=== PATIENT | female | born 1965 | race Caucasian/White ===

== ENCOUNTER 2016-04-28 23:14 | Emergency (ER) | payer MEDICAID ==
--- NOTE | 2016-04-28 23:30 | ER Document Report ---
ED Medical Screen (RME) - General Stated Complaint: NAUSEA,VOMITING,FEVER,CHILLLS Time seen by provider: 23:28 Mode of Arrival: Medic Information source: Patient Notes: 50-year-old female presents to ED for nausea and diarrhea for the past week. Increase in pain for the last 2-3 days. Has not been tested for the flu fever been as high as 100.5 today and she became worried. Temperature is 98.0 in the emergency room. She is currently receiving chemotherapy for bone cancer. She's had breast and thyroid cancer. She has had 2 chemotherapy treatments and she missed a which was supposed to be Tuesday due to illness. She received 4 mg Zofran IV in the EMS. EMS states that she pulled her IV out after the Zofran. She states she took 400 mg of ibuprofen an hour before being picked up by the EMS. I have greeted and performed a rapid initial assessment of this patient. A comprehensive ED assessment and evaluation of the patient, analysis of test results and completion of medical decision making process will be conducted by an additional ED providers. TRAVEL OUTSIDE OF THE [place] IN LAST 30 DAYS: No - Related Data Allergies/Adverse Reactions: No Known Allergies Allergy (Verified 01/29/16 23:17) Past Medical History Endocrine Medical History: Reports: Hx Hypothyroidism Malignancy Medical History: Reports: Hx Bone Cancer, Hx Breast Cancer - Metastatic stage IV to the bone Psychiatric Medical History: Reports: Hx Anxiety, Hx Depression Past Surgical History: Reports: Hx Cholecystectomy, Hx Hysterectomy - total, Hx Thyroid Surgery - complete removal, Hx Tubal Ligation - Immunizations Hx Diphtheria, Pertussis, Tetanus Vaccination: Yes
[2016-04-29 01:22] LABS: ABSOLUTE LYMPHOCYTES (AUTO) 1.7 10^3/uL (0.5-4.7); ABSOLUTE MONOCYTES (AUTO) 0.9 10^3/uL (0.1-1.4); ABSOLUTE NEUT (AUTO) 10.4 10^3/uL (1.7-8.2); BASOPHILS % (AUTO) 0.1 % (0-2); HEMATOCRIT 42.4 % (36.0-47.0); HEMOGLOBIN 13.9 g/dL (12.0-15.5); HGB HCT DIFFERENCE -0.7; LYMPHOCYTES % (AUTO) 12.9 % (13-45); MEAN CORPUSCULAR HEMOGLOBIN 29.1 pg (27.0-33.4); MEAN CORPUSCULAR HGB CONC 32.8 g/dL (32.0-36.0); MEAN CORPUSCULAR VOLUME 89 fl (80-97); RED BLOOD COUNT 4.77 10^6/uL (3.72-5.28); RED CELL DISTRIBUTION WIDTH 15.6 % (11.5-14.0)
[2016-04-29 01:32] LABS: ALANINE AMINOTRANSFERASE 16 U/L (9-52); ALKALINE PHOSPHATASE 86 U/L (38-126); ANION GAP 15 (5-19); ASPARTATE AMINO TRANSFERASE 20 U/L (14-36); BILIRUBIN,TOTAL 0.6 mg/dL (0.2-1.3); BLOOD UREA NITROGEN 14 mg/dL (7-20); CALCIUM 9.1 mg/dL (8.4-10.2); CARBON DIOXIDE 21 mmol/L (22-30); CHLORIDE 105 mmol/L (98-107); CREATININE RESULT 0.67 mg/dL (0.52-1.25); GLUCOSE 98 mg/dL (75-110); LIPASE 76.1 U/L (23-300); POTASSIUM 3.7 mmol/L (3.6-5.0); SODIUM 140.6 mmol/L (137-145); TOTAL PROTEIN 7.5 g/dL (6.3-8.2)
[2016-04-29 01:37] LABS: APPEARANCE,URINE CLOUDY; BILIRUBIN,URINE NEGATIVE (NEGATIVE); GLUCOSE, URINE NEGATIVE (NEGATIVE); KETONES,URINE 20 mg/dL (NEGATIVE); LEUKOCYTE ESTERASE,URINE SMALL (NEGATIVE); NITRITE,URINE NEGATIVE (NEGATIVE); PROTEIN,URINE 100 mg/dL (NEGATIVE); URINE SPECIFIC GRAVITY 1.028
[2016-04-29] MEDS ORDERED: NORMAL SALINE 1000 ML 1,000 ML IV ONE (05:12)
[2016-04-29] MEDS ORDERED: MORPHINE SULFATE 10 MG/ML INJ IV ONE (05:12)
[2016-04-29] MEDS ORDERED: CEFTRIAXONE RTU 1 GM/D5W 50 ML IV ONE (05:12)
--- NOTE | 2016-04-29 05:18 | ER Document Report ---
ED Flu Like - General Chief Complaint: Nausea Stated Complaint: NAUSEA,VOMITING,FEVER,CHILLLS Time seen by provider: 05:13 Mode of Arrival: Medic Information source: Patient Notes: 50-year-old female presents to ED for nausea diarrhea for the past week. She is also has runny nose and cough. She has increased and her back for the last 2 or 3 days. She has not been tested for the flu and states she's had a temperature as high as 100.5 today. She is currently receiving chemotherapy for bone cancer she has a history of breast and thyroid cancer. She has had to chemotherapy treatments administered third one due to be an ill. She received 4 mg of Zofran in the EMS and then pulled her IV out. She states she took 400 mg of ibuprofen an hour before EMS picked her up. She states she smoked marijuana yesterday for her pain she is also on morphine and Percocet but hasn' t had any for 2 days because she states the marijuana was helping her pain. TRAVEL OUTSIDE OF THE [place] IN LAST 30 DAYS: No - HPI Onset: Last week Timing/Duration: Worse Quality of pain: Sharp Severity: Moderate Pain Level: 3 CO exposure: No Associated symptoms: Chills, Nonproductive cough, Fever, Nausea, Vomiting Similar symptoms previously: Yes Recently seen / treated by doctor: Yes - Related Data Allergies/Adverse Reactions: No Known Allergies Allergy (Verified 01/29/16 23:17) Past Medical History - General Information source: Patient - Social History Smoking Status: Current Every Day Smoker Cigarette use (# per day): Yes - half pack per day Chew tobacco use (# tins/day): No Smoking Education Provided: Yes - acetaminophen 2 minutes Frequency of alcohol use: None Drug Abuse: Marijuana Lives with: Family Family History: Reviewed & Not Pertinent Patient has suicidal ideation: No Patient has homicidal ideation: No - Past Medical History Cardiac Medical History: Reports: None Pulmonary Medical History: Reports: None EENT Medical History: Reports: None Neurological Medical History: Reports: None Endocrine Medical History: Reports: Hx Hypothyroidism Renal/ Medical History: Reports: None Malignancy Medical History: Reports: Hx Bone Cancer, Hx Breast Cancer - Metastatic stage IV to the bone, Other - Thyroid cancer with thyroid removed GI Medical History: Reports: None Musculoskeltal Medical History: Reports Hx Musculoskeletal Deformity - Breast cancer metastatic to bone Skin Medical History: Reports None Psychiatric Medical History: Reports: Hx Anxiety, Hx Depression Traumatic Medical History: Reports: None Infectious Medical History: Reports: None Past Surgical History: Reports: Hx Cholecystectomy, Hx Hysterectomy, Hx Thyroid Surgery - complete removal, Hx Tubal Ligation - Immunizations Hx Diphtheria, Pertussis, Tetanus Vaccination: Yes Review of Systems - Review of Systems Constitutional: Fever, Recent illness EENT: Nose discharge, Sinus discharge Cardiovascular: No symptoms reported Respiratory: Cough Gastrointestinal: Diarrhea, Nausea Genitourinary: No symptoms reported Female Genitourinary: No symptoms reported Musculoskeletal: No symptoms reported Skin: No symptoms reported Hematologic/Lymphatic: No symptoms reported Neurological/Psychological: No symptoms reported -: Yes All other systems reviewed and negative Physical Exam - Vital signs Vitals: Temp Pulse Resp BP Pulse Ox 98.0 F 77 16 108/65 98 04/28/16 23:43 04/28/16 23:43 04/28/16 23:43 04/28/16 23:43 04/28/16 23:43 Interpretation: Normal - General General appearance: Appears well, Alert - HEENT Head: Normocephalic, Atraumatic Eyes: Normal Pupils: PERRL Ears: Normal External canal: Normal Tympanic membrane: Normal Sinus: Normal Nasal: Purulent discharge, Swelling Mouth/Lips: Normal Mucous membranes: Normal Pharynx: Post nasal drainage Neck: Normal - Respiratory Respiratory status: No respiratory distress Chest status: Nontender Breath sounds: Normal Chest palpation: Normal - Cardiovascular Rhythm: Regular Heart sounds: Normal auscultation Murmur: No - Abdominal Inspection: Normal Distension: No distension Bowel sounds: Normal Tenderness: Nontender Organomegaly: No organomegaly - Back Back: Normal, Nontender - Extremities General upper extremity: Normal inspection, Nontender, Normal color, Normal ROM , Normal temperature General lower extremity: Normal inspection, Nontender, Normal color, Normal ROM , Normal temperature, Normal weight bearing. No: Dragan's sign - Neurological Neuro grossly intact: Yes Cognition: Normal Orientation: AAOx4 Salomon Coma Scale Eye Opening: Spontaneous Salomon Coma Scale Verbal: Oriented Salomon Coma Scale Motor: Obeys Commands [place] Coma Scale Total: 15 Speech: Normal Motor strength normal: LUE, RUE, LLE, RLE Sensory: Normal - Psychological Associated symptoms: Normal affect, Normal mood - Skin Skin Temperature: Warm Skin Moisture: Dry Skin Color: Normal Course - Re-evaluation Re-evalutation: 04/29/16 05:53 This is patient for her back pain and possible UTI after her morphine and Rocephin. Patient states she feels a whole lot better now pain is much decreased. She states the IV is burning like a new site to get her IV fluids. When asked patient if she could drink the fluids she will drink a couple cups of water I can send home without the IV she said no she really wanted the IV fluids. 04/29/16 07:03 Patient states she feels a lot better after her IV fluids. We will discharge home. Patient instructed to please keep her oncology appointment today and take her lab reports with her to that appointment. 04/29/16 07:14 Patient is getting her IV taken out right now she has completed her IV fluids. She will be discharged at this time to follow-up with her oncologist. - Vital Signs Vital signs: Temp Pulse Resp BP Pulse Ox 98.0 F 77 16 108/65 98 04/28/16 23:43 04/28/16 23:43 04/28/16 23:43 04/28/16 23:43 04/28/16 23:43 - Laboratory Result Diagrams: 04/29/16 00:58 04/29/16 00:58 Laboratory results interpreted by me: 04/29/16 04/29/16 04/29/16 00:58 00:58 00:58 WBC 13.0 H RDW 15.6 H Seg Neutrophils % 80.0 H Lymphocytes % 12.9 L Absolute Neutrophils 10.4 H Carbon Dioxide 21 L Urine Protein 100 H Urine Ketones 20 H Urine Urobilinogen 2.0 H Ur Leukocyte Esterase SMALL H Urine Ascorbic Acid 40 H - Diagnostic Test Radiology reviewed: Image reviewed, Reports reviewed Discharge - Discharge Clinical Impression: Nausea, on chemotherapy Upper respiratory infection Qualifiers: URI type: unspecified URI Qualified Code(s): J06.9 - Acute upper respiratory infection, unspecified Diarrhea Qualifiers: Diarrhea type: unspecified type Qualified Code(s): R19.7 - Diarrhea, unspecified Condition: Stable Disposition: HOME, SELF-CARE Additional Instructions: DIARRHEA, NON-SPECIFIC: Diarrhea means frequent, watery stools. There are many causes. Any problem that keeps the intestinal tract from absorbing water from the stool can lead to diarrhea. A sudden new diarrhea problem is usually caused by a virus, food sensitivity, toxic bacteria, or drugs. In this case, we expect the problem to go away soon. Testing is done only if you seem seriously ill from the diarrhea. If you have chronic diarrhea, or diarrhea that keeps coming back, we need to find out why. Chronic diarrhea can be due to inflammation of the bowels such as Crohn's disease or ulcerative colitis, food sensitivity such as intolerance to lactose or wheat protein, irritable bowel syndrome, and other problems. If your diarrhea is a significant problem but it's not clear why you have it, we' ll refer you to a specialist for further testing. During an episode of diarrhea, drink small amounts (two to six ounces) of clear liquids (soft drinks, sport drinks, herb teas, broth, etc). Take fluids frequently to prevent dehydration. It's usually not a problem to take mild anti- diarrhea medication such as Kaopectate or Pepto-Bismol. As the diarrhea eases, advance to small amounts of bland food (mashed potato, toast) for 24 hours. Call the physician if blood appears in your vomit or stool, if vomiting lasts longer than 24 hours, if the abdominal pain worsens or becomes localized to one area, if you develop high fever, or if you become lightheaded and weak. VIRAL SYNDROME: The physician has diagnosed a viral infection. Viruses not only cause "colds," but can cause many different symptoms including generalized aching, fever, headache, cough, diarrhea, nausea, vomiting, and fatigue. The treatment, for the most part, is simply relief of symptoms. This means that antibiotics are usually not given. Rest, fluids, pain medications and, occasionally, medication for the specific symptoms that are most bothersome will be prescribed. Use good handwashing to avoid passing the virus to others. Shared toys should be cleaned with disinfectant. Clean the toilets, sinks, and counter surfaces in bathrooms. Launder clothing in hot water. Contact the physician if you develop any new or unusual symptoms such as severe headache, stiff neck, high fever, chest pain, productive cough, or shortness of breath. You should be rechecked if you don't see marked improvement within seven to 10 days. INTRAVENOUS (I V) FLUIDS: As part of your care today, you received intravenous (IV) fluids. IV fluids are administered to patients who are dehydrated or to those who have certain chemical (electrolyte) abnormalities that need correcting. ANTINAUSEA MEDICATION: You have been given a medication to suppress nausea and vomiting. This type of medication can be given as a shot, pill, or suppository. It will usually last for many hours. Pills and shots usually last six to eight hours. For the typical illness, only one or two doses of the medication may be necessary. Mild lightheadedness may occur. This type of medicine can cause drowsiness. Do not drive or operate dangerous machinery while under its influence. Do not mix with alcohol. See your doctor at once if you have muscle spasms or tightness, or uncontrollable motions (particularly of the neck, mouth, or jaw). Persistent vomiting or severe lightheadedness should also be evaluated by the physician. Low back pain due to cancer. You on multiple narcotics. Be sure that you are taken Ariela lax or some equivalent to ensure you do not become constipated from your narcotics. Please be on a stool softener. FOLLOW-UP CARE: If you have been referred to a physician for follow-up care, call the physician s office for an appointment as you were instructed or within the next two days. If you experience worsening or a significant change in your symptoms, notify the physician immediately or return to the Emergency Department at any time for re-evaluation. Please keep your appointment with your oncologist this morning and take your lab reports with you when you go. Forms: Smoking Cessation Education Referrals: MAGDY GARCIA, GINAC [Primary Care Provider] - Follow up as needed
[2016-04-29 07:19] VITALS: BP 121/74
== END 2016-04-29 07:19 | disposition home or self-care (01) ==
LOC: ER 23:14
DX: J06.9 Acute upper respiratory infection, unspecified (principal); R19.7 Diarrhea, unspecified; C41.9 Malignant neoplasm of bone and articular cartilage, unspecified; R11.2 Nausea with vomiting, unspecified; R50.9 Fever, unspecified; Z79.899 Other long term (current) drug therapy; F17.210 Nicotine dependence, cigarettes, uncomplicated
CPT/HCPCS: 99284; 96375; 96365; 36415; 87040; 87086; 83690; 85025; 87077; 80053; 81001; 83605; 87804; 71020; J2270; J7030; J0696

== ENCOUNTER 2016-05-04 21:58 | Emergency (ER) | payer MEDICAID ==
[2016-05-04] MEDS ORDERED: ONDANSETRON HCL INJ/PF 4 MG/2 ML SDV IV ONE (22:27)
[2016-05-04] MEDS ORDERED: MORPHINE SULFATE 10 MG/ML INJ IV ONE (22:27)
--- NOTE | 2016-05-04 22:31 | ER Document Report ---
ED Fall - General Chief Complaint: Fall Stated Complaint: FALL RIGHT HIP PAIN Mode of Arrival: Medic Information source: Patient Notes: This is a 50-year-old female with a history of stage IV metastatic breast cancer with metastases to the bones who presents with right hip pain after sustaining a fall at home. She states that she was cleaning her kitchen and she tripped over her broom at about 2044 and she fell on her right hip. She denies hitting her head or loss of consciousness. She denies any other pain or injury. She has been ambulatory minimally with pain. She was home by herself when this happened and so she called EMS. TRAVEL OUTSIDE OF THE [place] IN LAST 30 DAYS: No - Related data Allergies/Adverse Reactions: No Known Allergies Allergy (Verified 01/29/16 23:17) Past Medical History - General Information source: Patient, [facility] Records - Social History Smoking Status: Current Every Day Smoker Frequency of alcohol use: None Drug Abuse: Marijuana Family History: Reviewed & Not Pertinent Patient has suicidal ideation: No Patient has homicidal ideation: No Endocrine Medical History: Reports: Hx Hypothyroidism Renal/ Medical History: Denies: Hx Peritoneal Dialysis Malignancy Medical History: Reports: Hx Bone Cancer, Hx Breast Cancer - Metastatic stage IV to the bone Musculoskeltal Medical History: Reports Hx Musculoskeletal Deformity - Breast cancer metastatic to bone Psychiatric Medical History: Reports: Hx Anxiety, Hx Depression Past Surgical History: Reports: Hx Cholecystectomy, Hx Hysterectomy, Hx Thyroid Surgery - complete removal, Hx Tubal Ligation - Immunizations Hx Diphtheria, Pertussis, Tetanus Vaccination: Yes Review of Systems - Review of Systems Constitutional: No symptoms reported. denies: Fever EENT: No symptoms reported Cardiovascular: No symptoms reported. denies: Chest pain Respiratory: denies: No symptoms reported Gastrointestinal: denies: No symptoms reported Physical Exam - Notes Notes: PHYSICAL EXAMINATION: GENERAL: Well-appearing, thin female, pleasant and conversant and in no apparent distress HEAD: Atraumatic, normocephalic. EYES: Pupils equal round and reactive to light, extraocular movements intact, sclera anicteric, conjunctiva are normal. ENT: nares patent, oropharynx clear without exudates. Moist mucous membranes. NECK: Normal range of motion, supple without lymphadenopathy LUNGS: Breath sounds clear to auscultation bilaterally and equal. No wheezes rales or rhonchi. HEART: Regular rate and rhythm without murmurs ABDOMEN: Soft, nontender, normoactive bowel sounds. No guarding, no rebound. No masses appreciated. EXTREMITIES: Normal range of motion, no pitting or edema. No cyanosis. R hip: TTP over greater trochanter, minimal pain with flexion, but more pain with external rotation. Distal pulses intact. NEUROLOGICAL: Cranial nerves grossly intact. No gross focal motor or sensory deficits appreciated PSYCH: Normal mood, normal affect. SKIN: Warm, Dry, normal turgor, no rashes or lesions noted. Discharge - Discharge Clinical Impression: Right hip pain Fall Qualifiers: Encounter type: initial encounter Qualified Code(s): W19.XXXA - Unspecified fall, initial encounter Chronic pain Qualifiers: Chronic pain type: due to neoplasm Qualified Code(s): G89.3 - Neoplasm related pain (acute) (chronic) Condition: Stable Disposition: HOME, SELF-CARE Additional Instructions: Your x-rays are negative for fracture or bony lesions. You can use ice as needed for pain. Weight bearing as tolerated. Resume your home pain medication regimen as prescribed. Follow up with Dr. Galarza this week as already scheduled. Return to the ER for any worsening symptoms or concerns. Referrals: ASUNCION GALARZA MD [Primary Care Provider] - 05/06/16
[2016-05-05 00:26] VITALS: BP 118/60
== END 2016-05-05 00:26 | disposition home or self-care (01) ==
LOC: ER 21:58
DX: M25.551 Pain in right hip (principal); W01.0XXA Fall on same level from slipping, tripping and stumbling without subsequent striking against object, initial encounter; Y93.E9 Activity, other interior property and clothing maintenance; Y92.000 Kitchen of unspecified non-institutional (private) residence as the place of occurrence of the external cause; G89.3 Neoplasm related pain (acute) (chronic); C50.919 Malignant neoplasm of unspecified site of unspecified female breast; C79.51 Secondary malignant neoplasm of bone; F17.200 Nicotine dependence, unspecified, uncomplicated
CPT/HCPCS: 99283; 96374; 96375; 73502; J2270; J2405

== ENCOUNTER 2016-05-27 07:07 | Emergency (ER) | payer MEDICAID ==
[2016-05-27] MEDS ORDERED: MORPHINE SULFATE IR 30 MG TABLET PO ONE (11:40)
[2016-05-27 12:39] LABS: ABSOLUTE LYMPHOCYTES (AUTO) 1.7 10^3/uL (0.5-4.7); ABSOLUTE MONOCYTES (AUTO) 0.8 10^3/uL (0.1-1.4); ABSOLUTE NEUT (AUTO) 10.5 10^3/uL (1.7-8.2); BASOPHILS % (AUTO) 0.2 % (0-2); HEMATOCRIT 37.1 % (36.0-47.0); HEMOGLOBIN 12.5 g/dL (12.0-15.5); HGB HCT DIFFERENCE 0.4; MEAN CORPUSCULAR HEMOGLOBIN 30.2 pg (27.0-33.4); MEAN CORPUSCULAR HGB CONC 33.7 g/dL (32.0-36.0); MEAN CORPUSCULAR VOLUME 90 fl (80-97); MONOCYTES % (AUTO) 6.4 % (3-13); RED BLOOD COUNT 4.14 10^6/uL (3.72-5.28); RED CELL DISTRIBUTION WIDTH 17.5 % (11.5-14.0); SEGMENTED NEUTROPHILS % (AUTO) 80.4 % (42-78); WHITE BLOOD COUNT 13.1 10^3/uL (4.0-10.5)
--- NOTE | 2016-05-27 13:00 | ER Document Report ---
ED Neuro Symptoms/Deficit - General Chief Complaint: Numbness of Face Stated Complaint: NUMBNESS TO FACE Notes: The patient is a 50-year-old female, past medical history breast cancer ( receiving weekly chemotherapy), presents with 2 years of intermittent left sided facial numbness that last about 2 minutes and vision changes. This morning she had an episode when she saw her left eye went blurry for about 10 minutes. This resolved, but concerned her enough to go to the emergency room. She has not seen a neurologist for these episodes. She denies any current symptoms and denies headache, neck pain, chest pain, shortness of breath, weakness, numbness, tingling, fevers or chills. TRAVEL OUTSIDE OF THE [place] IN LAST 30 DAYS: No - Related Data Allergies/Adverse Reactions: No Known Allergies Allergy (Verified 05/27/16 07:12) Past Medical History - General Information source: Patient - Social History Smoking Status: Never Smoker Chew tobacco use (# tins/day): No Frequency of alcohol use: None Drug Abuse: None Family History: Reviewed & Not Pertinent Patient has suicidal ideation: No Patient has homicidal ideation: No Endocrine Medical History: Reports: Hx Hypothyroidism Renal/ Medical History: Denies: Hx Peritoneal Dialysis Malignancy Medical History: Reports: Hx Bone Cancer, Hx Breast Cancer - Metastatic stage IV to the bone Musculoskeltal Medical History: Reports Hx Musculoskeletal Deformity - Breast cancer metastatic to bone Psychiatric Medical History: Reports: Hx Anxiety, Hx Depression Past Surgical History: Reports: Hx Cholecystectomy, Hx Hysterectomy, Hx Thyroid Surgery - complete removal, Hx Tubal Ligation - Immunizations Hx Diphtheria, Pertussis, Tetanus Vaccination: Yes Review of Systems - Review of Systems Notes: REVIEW OF SYSTEMS: CONSTITUTIONAL: -fevers, -chills EENT: -eye pain, -difficulty swallowing, -nasal congestion CARDIOVASCULAR:-chest pain, -syncope. RESPIRATORY: -cough, -SOB GASTROINTESTINAL: -abdominal pain, - nausea, -vomiting, -diarrhea GENITOURINARY: -dysuria, -hematuria MUSCULOSKELETAL: -back pain, -neck pain SKIN: -rash or skin lesions. HEMATOLOGIC: -easy bruising or bleeding. LYMPHATIC: -swollen, enlarged glands. NEUROLOGICAL: -altered mental status or loss of consciousness, -headache, +left face numbness PSYCHIATRIC: -anxiety, -depression. ALL OTHER SYSTEMS REVIEWED AND NEGATIVE. Physical Exam - Vital signs Vitals: Temp Pulse Resp BP Pulse Ox 98.3 F 74 16 106/64 99 05/27/16 07:19 05/27/16 07:19 05/27/16 07:19 05/27/16 07:19 05/27/16 07:19 - Notes Notes: PHYSICAL EXAMINATION: GENERAL: Well-appearing, well-nourished and in no acute distress. HEAD: Atraumatic, normocephalic. EYES: Pupils equal round and reactive to light, extraocular movements intact, sclera anicteric, conjunctiva are normal. ENT: nares patent, oropharynx clear without exudates. Moist mucous membranes. NECK: Normal range of motion, supple without lymphadenopathy LUNGS: Breath sounds clear to auscultation bilaterally and equal. No wheezes rales or rhonchi. HEART: Regular rate and rhythm without murmurs ABDOMEN: Soft, nontender, normoactive bowel sounds. No guarding, no rebound. No masses appreciated. EXTREMITIES: Normal range of motion, no pitting or edema. No cyanosis. NEUROLOGICAL: Cranial nerves grossly intact. Normal speech, normal gait. Normal sensory, motor, and reflex exams. PSYCH: Normal mood, normal affect. SKIN: Warm, Dry, normal turgor, no rashes or lesions noted. Course - Re-evaluation Re-evalutation: Patient's CT of the head is normal and her electrolytes are all unremarkable. Her left-sided facial paresthesias and brief blurred vision is ongoing for the past 2 years. No signs of infection to explain her slight leukocytosis. Instructed her that she must follow-up with the neurologist for further evaluation and treatment. - Vital Signs Vital signs: Temp Pulse Resp BP Pulse Ox 98.2 F 71 14 120/72 98 05/27/16 11:14 05/27/16 13:20 05/27/16 13:20 05/27/16 13:20 05/27/16 13:20 - Laboratory Result Diagrams: 05/27/16 12:19 05/27/16 12:19 Laboratory results interpreted by me: 05/27/16 05/27/16 12:19 12:19 WBC 13.1 H RDW 17.5 H Seg Neutrophils % 80.4 H Absolute Neutrophils 10.5 H Chloride 109 H BUN 23 H Discharge - Discharge Clinical Impression: Facial paresthesia Condition: Good Disposition: HOME, SELF-CARE Additional Instructions: You must follow-up with the neurologist for further evaluation and treatment of your 2 years of intermittent left-sided facial numbness and blurry vision. Neuropathy Your symptoms are due to neuropathy. Neuropathy is nerve damage. There are many causes, including diabetes, immune disease, alcohol, blood vessel disease, and vitamin deficiency. The usual symptoms are pain and numbness. Neuropathy can occur anywhere, but it's most likely in the "longest" nerves. That's why the feet are most often affected. Sometimes the nerve damage can heal. But if the symptoms have lasted more than a few months, the damage is permanent. To avoid further damage, treat your underlying health problems carefully. If you have diabetes, keep the blood sugar as normal as possible. Avoid alcohol. Treat high blood pressure and high cholesterol. Treating chronic pain can be a problem. Obviously, you don't want to become addicted to pain medicine. Work closely with your doctor on pain management. Your options include antiinflammatory medicine, anti seizure medicine, antidepressants, and pain clinic management. Contact the doctor if there is a significant change. Referrals: ASUNCION DOUGLAS MD [Primary Care Provider] - Follow up as needed BEREKET SCHWARTZ MD [ACTIVE STAFF] - Follow up as needed
[2016-05-27 13:04] LABS: ANION GAP 10 (5-19); BLOOD UREA NITROGEN 23 mg/dL (7-20); CALCIUM 9.3 mg/dL (8.4-10.2); CARBON DIOXIDE 25 mmol/L (22-30); CHLORIDE 109 mmol/L (98-107); CREATININE RESULT 0.63 mg/dL (0.52-1.25); GLUCOSE 98 mg/dL (75-110); POTASSIUM 3.7 mmol/L (3.6-5.0); SODIUM 144.1 mmol/L (137-145)
[2016-05-27 13:35] VITALS: BP 120/72
== END 2016-05-27 13:35 | disposition home or self-care (01) ==
LOC: ER 07:07
DX: R20.0 Anesthesia of skin (principal); H53.8 Other visual disturbances; D72.829 Elevated white blood cell count, unspecified; E89.0 Postprocedural hypothyroidism; Z85.3 Personal history of malignant neoplasm of breast; Z85.830 Personal history of malignant neoplasm of bone
CPT/HCPCS: 36415; 70450; 80048; 82962; 85025; 99284

== ENCOUNTER 2016-06-07 10:31 | Emergency (ER) | payer MEDICAID ==
[2016-06-07] MEDS ORDERED: NORMAL SALINE 1000 ML 1,000 ML IV ONE ×2 (11:01→13:14)
--- NOTE | 2016-06-07 11:01 | ER Document Report ---
ED Syncope and Near Syncope - General Chief Complaint: Diarrhea Stated Complaint: NAUSEA Mode of Arrival: Medic Information source: Patient TRAVEL OUTSIDE OF THE [place] IN LAST 30 DAYS: No - HPI Patient complains to provider of: Fainting Symptoms prior to episode: Diarrhea, Lightheaded Context: Collapsed, Lost consciousness. denies: Incontinent of stool, Incontinent of urine, Low blood sugar, Recent immobilization, Recent seizures, Recent travel, Seizure activity observed Injury location: None Current symptoms: None/feels back to normal Notes: Patient arrives with complaints of syncope. This is a 50-year-old female with a history of rest cancer with metastasis to her bones. She currently undergoes IV chemotherapy. Patient states the last week she has had diarrhea. She denies seeing any blood in her stool. She's had nausea, but denies any vomiting. She denies any current abdominal pain. She denies any chest pain, but complains of shortness of breath that she exerts herself which is new for the last few weeks. She denies any history of DVT or PE. No leg pain or swelling. She states that today she got up off the couch felt lightheaded and had a syncopal episode and then tried to get up again and when she got up felt lightheaded and had another syncopal episode. She denies any injuries with this. She denies any headache, blurred vision, unilateral numbness tingling or weakness. She denies any fevers. She denies any other complaints at this time. - Related Data Allergies/Adverse Reactions: No Known Allergies Allergy (Verified 05/27/16 07:12) Past Medical History - Social History Smoking Status: Unknown if Ever Smoked Chew tobacco use (# tins/day): No Frequency of alcohol use: None Drug Abuse: None Family History: Reviewed & Not Pertinent Endocrine Medical History: Reports: Hx Hypothyroidism Renal/ Medical History: Reports: Hx Kidney Stones. Denies: Hx Peritoneal Dialysis Malignancy Medical History: Reports: Hx Bone Cancer, Hx Breast Cancer - Metastatic stage IV to the bone Musculoskeltal Medical History: Reports Hx Musculoskeletal Deformity - Breast cancer metastatic to bone Psychiatric Medical History: Reports: Hx Anxiety, Hx Depression Past Surgical History: Reports: Hx Cholecystectomy, Hx Hysterectomy, Hx Thyroid Surgery - complete removal, Hx Tubal Ligation - Immunizations Hx Diphtheria, Pertussis, Tetanus Vaccination: Yes Review of Systems - Review of Systems -: Yes All other systems reviewed and negative Physical Exam - Vital signs Vitals: Temp Pulse Resp BP Pulse Ox 97.4 F 71 15 113/60 100 06/07/16 10:37 06/07/16 10:37 06/07/16 10:37 06/07/16 10:37 06/07/16 10:37 - General General appearance: Appears well, Alert In distress: None - HEENT Head: Normocephalic, Atraumatic Eyes: Normal Pupils: PERRL External canal: Normal Mucous membranes: Normal Pharynx: Normal - Respiratory Respiratory status: No respiratory distress Breath sounds: Normal - Cardiovascular Rhythm: Regular Heart sounds: Normal auscultation Murmur: No Normal capillary refill: Yes - Abdominal Inspection: Normal Distension: No distension Bowel sounds: Normal Tenderness: Nontender Organomegaly: No organomegaly - Extremities General upper extremity: Normal inspection, Nontender, Normal color, Normal ROM , Normal temperature General lower extremity: Normal inspection, Nontender, Normal color, Normal ROM , Normal temperature, Normal weight bearing. No: Dragan's sign - Neurological Neuro grossly intact: Yes Cognition: Normal Orientation: AAOx4 [place] Coma Scale Eye Opening: Spontaneous [place] Coma Scale Verbal: Oriented [place] Coma Scale Motor: Obeys Commands [place] Coma Scale Total: 15 Speech: Normal Cranial nerves: Normal Motor strength normal: LUE, RUE, LLE, RLE Sensory: Normal - Psychological Associated symptoms: Normal affect, Normal mood - Skin Skin Temperature: Warm Skin Moisture: Dry Skin Color: Normal Course - Re-evaluation Re-evalutation: 06/07/16 14:21 Patient is nontoxic-appearing at this time. She is feeling extremely better at this time. She is actually hungry and requesting food. Her initial workup is unremarkable. EKG is negative, chest CT shows no PE, troponin is negative. White blood cell count is low which is to be expected due to her chemotherapy. She has no obvious signs of infection at this time. We will repeat her troponin and EKG due to her syncopal episodes. Blood cultures and urine culture will be sent. The patient's repeat EKG and troponin are negative the patient will be discharged home as she is feeling significantly better at this time. 06/07/16 15:21 Repeat EKG shows a rate of 61 with flat T waves in lead 3, aVF, flipped T-wave in V2 and V3. This is unchanged from this morning to EKG. 06/07/16 16:11 Patient is feeling better at this time. She was able to eat without any difficulty. She's had no diarrhea since she's been here in the emergency department. Her workup shows benign electrolytes. White count is 2.2 likely secondary to recent chemotherapy. EKG as well as troponin are negative. Repeat EKG and troponin are also negative. CT shows no PE. Patient will be discharged home with instructions to follow-up with her primary care doctor in the next 1-2 days for reevaluation. Follow-up sooner if she develops syncope, chest pain, difficulty breathing, severe abdominal pain, blood in her vomit or stool, or any further concerns. The patient's emergency department workup and current diagnosis were explained to the patient and or family. Follow-up instructions were provided. Medications if prescribed were discussed. Instructions for when to return to the emergency department including specific worrisome symptoms were discussed with the patient and/or family. - Vital Signs Vital signs: Temp Pulse Resp BP Pulse Ox 97.4 F 75 11 L 104/69 98 06/07/16 10:37 06/07/16 11:17 06/07/16 14:03 06/07/16 13:00 06/07/16 13:01 - Laboratory Result Diagrams: 06/07/16 11:58 06/07/16 11:58 Laboratory results interpreted by me: 06/07/16 06/07/16 06/07/16 11:58 11:58 11:58 WBC 2.2 L RBC 3.61 L Hgb 11.1 L Hct 32.3 L RDW 16.4 H Lymphocytes % 49.3 H Absolute Neutrophils 0.9 L Creatinine 0.40 L NT-Pro-B Natriuret Pep 512 H Total Protein 5.5 L Albumin 3.3 L Urine Ketones Urine Blood 06/07/16 12:45 WBC RBC Hgb Hct RDW Lymphocytes % Absolute Neutrophils Creatinine NT-Pro-B Natriuret Pep Total Protein Albumin Urine Ketones 80 H Urine Blood MODERATE H - EKG Interpretation by Oh EKG shows normal: Sinus rhythm, Intervals, QRS Complexes Rate: Normal Rhythm: NSR When compared to previous EKG there are: No significant change - 03/21/15 Additional EKG results interpreted by me: 06/07/16 11:01 flipped T waves in V2 and V3 as well as lead 3 Discharge - Discharge Clinical Impression: Nausea vomiting and diarrhea Syncope Qualifiers: Syncope type: unspecified Qualified Code(s): R55 - Syncope and collapse Condition: Stable Disposition: HOME, SELF-CARE Instructions: Diarrhea, Nonspecific ([facility]), Vomiting ([facility]), Syncopal Episode ( [facility]) Additional Instructions: Follow-up with your doctor at the next available appointment. He should follow- up sooner or return for increased pain, persistent vomiting, high fever, chest pain, shortness of breath, passing out again, or any further concerns. be sure to get up slowly when getting up.
[2016-06-07] MEDS ORDERED: OXYCODONE-ACETAMINOPHEN 5-325 MG TABLET PO ONE (12:09)
[2016-06-07 12:17] LABS: ABSOLUTE LYMPHOCYTES (AUTO) 1.1 10^3/uL (0.5-4.7); ABSOLUTE MONOCYTES (AUTO) 0.1 10^3/uL (0.1-1.4); ABSOLUTE NEUT (AUTO) 0.9 10^3/uL (1.7-8.2); BASOPHILS % (AUTO) 0.8 % (0-2); EOSINOPHILS % (AUTO) 0.7 % (0-6); HEMATOCRIT 32.3 % (36.0-47.0); HEMOGLOBIN 11.1 g/dL (12.0-15.5); LYMPHOCYTES % (AUTO) 49.3 % (13-45); MEAN CORPUSCULAR HEMOGLOBIN 30.7 pg (27.0-33.4); MEAN CORPUSCULAR HGB CONC 34.3 g/dL (32.0-36.0); MEAN CORPUSCULAR VOLUME 90 fl (80-97); MONOCYTES % (AUTO) 6.1 % (3-13); RED BLOOD COUNT 3.61 10^6/uL (3.72-5.28); RED CELL DISTRIBUTION WIDTH 16.4 % (11.5-14.0); SEGMENTED NEUTROPHILS % (AUTO) 43.1 % (42-78); WHITE BLOOD COUNT 2.2 10^3/uL (4.0-10.5)
[2016-06-07 12:39] LABS: ALANINE AMINOTRANSFERASE 22 U/L (9-52); ALBUMIN 3.3 g/dL (3.5-5.0); ALKALINE PHOSPHATASE 50 U/L (38-126); ANION GAP 6 (5-19); ASPARTATE AMINO TRANSFERASE 21 U/L (14-36); BILIRUBIN,DIRECT 0.1 mg/dL (0.0-0.4); BILIRUBIN,TOTAL 0.9 mg/dL (0.2-1.3); BLOOD UREA NITROGEN 15 mg/dL (7-20); CALCIUM 8.5 mg/dL (8.4-10.2); CARBON DIOXIDE 28 mmol/L (22-30); CHLORIDE 106 mmol/L (98-107); CREATINE KINASE 44 U/L (30-135); GLUCOSE 85 mg/dL (75-110); POTASSIUM 3.9 mmol/L (3.6-5.0); SODIUM 140.1 mmol/L (137-145); TOTAL PROTEIN 5.5 g/dL (6.3-8.2)
[2016-06-07 12:49] LABS: TROPONIN I < 0.012 ng/mL
--- NOTE | 2016-06-07 12:49 | EKG REPORT ---
SEVERITY:- ABNORMAL ECG - SINUS RHYTHM LEFT ATRIAL ABNORMALITY : Confirmed by: Joslyn Jones MD 07-Jun-2016 12:49:27
[2016-06-07 13:47] LABS: APPEARANCE,URINE SLIGHTLY-CLOUDY; BILIRUBIN,URINE NEGATIVE (NEGATIVE); GLUCOSE, URINE NEGATIVE (NEGATIVE); KETONES,URINE 80 mg/dL (NEGATIVE); LEUKOCYTE ESTERASE,URINE NEGATIVE (NEGATIVE); NITRITE,URINE NEGATIVE (NEGATIVE); PROTEIN,URINE NEGATIVE (NEGATIVE); UROBILINOGEN,URINE NEGATIVE mg/dL (<2.0)
[2016-06-07 13:50] LABS: URINE SPECIFIC GRAVITY > 1.060
[2016-06-07 14:21] VITALS: BP 104/69
--- NOTE | 2016-06-07 19:05 | EKG REPORT ---
SEVERITY:- ABNORMAL ECG - SINUS RHYTHM NONSPECIFIC T ABNORMALITIES, ANTERIOR LEADS : Confirmed by: Joslyn Jones MD 07-Jun-2016 19:05:00
== END 2016-06-07 16:26 | disposition home or self-care (01) ==
LOC: ER 10:31
DX: R19.7 Diarrhea, unspecified (principal); R11.2 Nausea with vomiting, unspecified; R55 Syncope and collapse; C50.919 Malignant neoplasm of unspecified site of unspecified female breast; C79.51 Secondary malignant neoplasm of bone; E89.0 Postprocedural hypothyroidism; Z79.899 Other long term (current) drug therapy; R06.02 Shortness of breath; Z90.49 Acquired absence of other specified parts of digestive tract; Z90.710 Acquired absence of both cervix and uterus
CPT/HCPCS: 93005; 99284; 96360; 36415; 87040; 87086; 82550; 85025; 81025; 80053; 81001; 84484; 83880; 71275; 93010; J7030

== ENCOUNTER 2016-06-27 20:54 | Emergency (ER) | payer MEDICAID ==
[2016-06-27 21:08] VITALS: BP 125/67
[2016-06-27] MEDS ORDERED: FENTANYL 25 MCG/HR PATCH.TD72 TD ONE (21:20)
[2016-06-27] MEDS ORDERED: LIDOCAINE 2% VISCOUS SOLN 20 ML UDCUP PO ONE (21:21)
[2016-06-27] MEDS ORDERED: ACETAMINOPHEN SOLN 325 MG/10.15 ML UDCUP PO ONE (21:23)
--- NOTE | 2016-06-27 21:23 | ER Document Report ---
HPI - HPI Patient complains to provider of: sore throat Onset: Other - 3 days Onset/Duration: Persistent Quality of pain: Achy Pain Level: 4 Context: Patient presents complaining of sore throat for the past 3 days. Patient reports having a low-grade fever of 99.9 at home yesterday. Patient complains of some nausea as well. Patient states that due to her throat pain she has not been able to take her oral pain medication oxycodone 15 mg. Patient states that she is supposed to take fentanyl 50 g, but whenever she went to get her medication filled the pharmacy was currently out of stock of this medication and told her that she can pick it up on Tuesday. Patient denies any sick contacts. Patient denies any difficulty breathing. Patient does have a history of stage IV metastatic breast cancer for which he takes chronic pain medications. Patient states she does have her oxycodone tablets at home, but she was not able to take the tablets due to her throat pain. Patient states that she called EMS to bring her here tonight as she does not have any personal means of transportation. Associated Symptoms: Fever, Sore throat. denies: Nonproductive cough, Productive cough, Earache - Low-grade, 99.9, Headache, Vomiting Exacerbated by: Food Relieved by: Denies Similar symptoms previously: No Recently seen / treated by doctor: No - ROS ROS below otherwise negative: Yes Systems Reviewed and Negative: Yes All other systems reviewed and negative - CONSTITUTIONAL Constitutional: REPORTS: Fever - Low-grade 99.9 - EENT EENT: REPORTS: Sore Throat - NEURO Neurology: DENIES: Headache, Weakness - CARDIOVASCULAR Cardiovascular: DENIES: Chest pain - RESPIRATORY Respiratory: DENIES: Trouble Breathing, Coughing - GASTROINTESTINAL Gastrointestinal: REPORTS: Nausea. DENIES: Abdominal Pain, Patient vomiting - REPRODUCTIVE Reproductive: DENIES: : - MUSCULOSKELETAL Musculoskeletal: REPORTS: Back Pain - Chronic due to her metastatic cancer. DENIES: Swelling - DERM Skin Color: Normal Skin Problems: None Past Medical History - General Information source: Patient - Social History Smoking Status: Current Every Day Smoker Frequency of alcohol use: None Drug Abuse: Marijuana Occupation: none Lives with: Alone Family History: Reviewed & Not Pertinent Endocrine Medical History: Reports: Hx Hypothyroidism Renal/ Medical History: Reports: Hx Kidney Stones. Denies: Hx Peritoneal Dialysis Malignancy Medical History: Reports: Hx Bone Cancer, Hx Breast Cancer - Metastatic stage IV to the bone Musculoskeltal Medical History: Reports Hx Musculoskeletal Deformity - Breast cancer metastatic to bone Psychiatric Medical History: Reports: Hx Anxiety, Hx Depression Past Surgical History: Reports: Hx Cholecystectomy, Hx Hysterectomy, Hx Thyroid Surgery - complete removal, Hx Tubal Ligation - Immunizations Hx Diphtheria, Pertussis, Tetanus Vaccination: Yes Vertical Provider Document - CONSTITUTIONAL Agree With Documented VS: Yes Exam Limitations: No Limitations General Appearance: No Apparent Distress, Other - Chronically ill appearance - INFECTION CONTROL TRAVEL OUTSIDE OF THE [place] IN LAST 30 DAYS: No - HEENT HEENT: Atraumatic, Normocephalic, Pharyngeal Tenderness. negative: Pharyngeal Exudate, Pharyngeal Erythema, Tympanic Membrane Red, Tympanic Membrane Bulging Notes: No potential airway compromise, no objective swelling of tonsils, tongue or posterior pharynx - NECK Neck: Lymphadenopathy-Left, Lymphadenopathy-Right - RESPIRATORY Respiratory: Breath Sounds Normal, No Respiratory Distress, Chest Non-Tender O2 Sat by Pulse Oximetry: 99 - CARDIOVASCULAR Cardiovascular: Regular Rate, Regular Rhythm, No Murmur - BACK Back: Normal Inspection - MUSCULOSKELETAL/EXTREMETIES Musculoskeletal/Extremeties: MAEW - NEURO Level of Consciousness: Awake, Alert, Appropriate Motor/Sensory: No Motor Deficit - DERM Integumentary: Warm, Dry, No Rash Course - Re-evaluation Re-evalutation: 06/27/16 21:[address] Sánchez regarding patient presentation and evaluation. Agrees with plan and workup. 06/27/16 21:[address] Galarza regarding patient presentation, doesn't recommend any additional testing. Discussed patient's pain management, states that patient just recently received a prescription for fentanyl after reporting that she has lost a prescription. Dr. Galarza states that patient should have medication at home to treat her pain symptoms. Reviewed patient's [place] controlled substance stated based query findings with Dr. Galarza as Dr. Galarza was becoming worried that patient may be starting to demonstrate drug-seeking behaviors. Controlled substance database shows last fill prescription of oxycodone 15 mg filled on 06/12/2016 for only a 15 day supply. Patient's last fentanyl patch was filled on 05/27/2016 for a 30 day supply. Review of [place] controlled substance database shows that patient she has been taking her medications consistently should be out of both the oxycodone and fentanyl, although patient states that she is only out of the fentanyl but has the oxycodone tablets at home. Discussed findings with patient , asked patient if she had her oxycodone at home, patient states that she did in fact have her pain medication tablets at home, although she just didn't take the medicine because of her pain to her throat. Explained to patient that her pain medication would treat pain regardless of its location whether it was for her cancer pain or her throat pain. 06/28/16 22:00 RN states that patient is very upset that I ordered Tylenol and oral lidocaine and only a 25 g fentanyl patch. Provider N RN went to bedside to discuss Agents concerns. Patient advised that Tylenol was ordered for her low-grade temperature, lidocaine was ordered for her throat pain so that she would more easily be able to take her usual pain medications. Patient advised that fentanyl patch was ordered as she said that she currently was out of her fentanyl patches. Patient states that she needs a 50 g patch 25, patient advised that only 25 g would be ordered as that was the only dose that I could confirm based on patient's previously filled prescriptions. Patient angry because fentanyl will take too long to have an effect and she wants a narcotic shot here. Patient advised that her pain symptoms could be managed with the oral lidocaine and that her chronic pain symptoms would be managed with a fentanyl patch that we would provide here in the ER and that when she returned home she could take her usual 15 mg tablet of oxycodone that she has at home. Patient advised that her oncologist was consulted and no additional testing was advised per her doctor. Patient's pain management was also discussed with her oncologist. - Vital Signs Vital signs: Temp Pulse Resp BP Pulse Ox 99.1 F 72 14 125/67 99 06/27/16 21:08 06/27/16 21:08 06/27/16 21:08 06/27/16 21:08 06/27/16 21:08 - Laboratory Laboratory results interpreted by me: 06/27/16 22:31 Labs- Entire Visit 06/27/16 21:45 Group A Strep Rapid NEGATIVE Discharge - Discharge Clinical Impression: Sore throat (viral), history metastatic breast cancer Chronic pain Qualifiers: Chronic pain type: other chronic pain Qualified Code(s): G89.29 - Other chronic pain Condition: Stable Disposition: HOME, SELF-CARE Instructions: Sore Throat ([facility]), Chronic Pain Control ([facility]) Additional Instructions: Return immediately for any new or worsening symptoms Followup with your primary care provider, call tomorrow to make a followup appointment Take your pain medication that you have at home as prescribed Referrals: ASUNCION GALARZA MD [ACTIVE STAFF] - Follow up tomorrow
== END 2016-06-27 22:50 | disposition home or self-care (01) ==
LOC: ER 20:54
DX: J02.8 Acute pharyngitis due to other specified organisms (principal); B97.89 Other viral agents as the cause of diseases classified elsewhere; G89.3 Neoplasm related pain (acute) (chronic); M54.9 Dorsalgia, unspecified; C50.919 Malignant neoplasm of unspecified site of unspecified female breast; C79.51 Secondary malignant neoplasm of bone; R11.0 Nausea; F17.200 Nicotine dependence, unspecified, uncomplicated; R59.0 Localized enlarged lymph nodes; Z79.891 Long term (current) use of opiate analgesic; R50.9 Fever, unspecified
CPT/HCPCS: 99283; 87070; 87880; J3490 ×2

== ENCOUNTER 2016-07-15 15:47 | Inpatient (IN) | payer MEDICAID ==
[2016-07-15] MEDS ORDERED: ONDANSETRON HCL INJ/PF 4 MG/2 ML SDV IV PRN ×2 (16:31→16:39)
[2016-07-15] MEDS ORDERED: ONDANSETRON 4 MG TAB.RAPDIS PO PRN (16:39)
[2016-07-15] MEDS ORDERED: ACETAMINOPHEN 325 MG TABLET PO PRN (16:39)
[2016-07-15] MEDS ORDERED: FENTANYL 50 MCG/HR PATCH.TD72 TD ONE (16:50)
--- NOTE | 2016-07-15 16:58 | PDOC H&P ---
History of Present Illness Admission Date/PCP: 07/15/16 15:47 ASUNCION DOUGLAS MD Patient complains of: Abdominal pain and nausea History of Present Illness: MIKE ALEXANDER is a 50 year old female who has widely metastatic breast cancer and has been getting treatment with Dr. Douglas who presents to Dr. Douglas 's office with abdominal pain and nausea. Patient reports that over the last several days she's had epigastric pain is worse when she eats. She's been able to keep some food down but has had difficulty eating because of the pain. She reports that she develops the pain is epigastric sharp pain that does not radiate. She has some nausea but denies any vomiting. She denies any melena or bright red blood per rectum. She does relate having diarrhea over the last was also. The patient denies any fevers or chills. She denies any alcohol use. The patient has had a cholecystectomy previously. Patient has had blood work drawn at Dr. Douglas's office earlier today the results of which are pending at the time of this dictation. The patient denies being around anyone who's been sick. Past Medical History Cardiac Medical History: Reports: None Pulmonary Medical History: Reports: None EENT Medical History: Reports: None Neurological Medical History: Reports: None Endocrine Medical History: Reports: Hypothyroidism Renal/ Medical History: Reports: Nephrolithiasis Malignancy Medical History: Reports: Bone Cancer, Breast Cancer - Metastatic stage IV to the bone, Cervical Cancer, Other - Thyroid cancer GI Medical History: Reports: None Musculoskeltal Medical History: Reports: None Psychiatric Medical History: Reports: Depression Traumatic Medical History: Reports: None Hematology: Reports: None Infectious Medical History: Reports: Clostridium Difficile Past Surgical History Past Surgical History: Reports: Cholecystectomy, Hysterectomy, Thyroidectomy, Tubal Ligation Social History Information Source: Patient Lives with: Family Smoking Status: Current Every Day Smoker Frequency of Alcohol Use: None Hx Recreational Drug Use: No Drugs: None Hx Prescription Drug Abuse: No - Advance Directive Resuscitation Status: Do Not Resuscitate Family History Family History: Mother 73 alive and has rheumatoid arthritis and diabetes mellitus. Father at age 62 with COPD. Parental Family History Reviewed: Yes Children Family History Reviewed: No Sibling(s) Family History Reviewed.: No Medication/Allergy Allergies/Adverse Reactions: No Known Allergies Allergy (Verified 05/27/16 07:12) Review of Systems Constitutional: PRESENT: weight loss. ABSENT: chills, fever(s), headache(s), night sweats Eyes: ABSENT: visual disturbances Ears: ABSENT: hearing changes Cardiovascular: ABSENT: chest pain, dyspnea on exertion, edema, orthropnea, palpitations Respiratory: ABSENT: cough, hemoptysis Gastrointestinal: PRESENT: as per HPI, abdominal pain, diarrhea, heartburn, nausea. ABSENT: dysphagia, hematemesis, hematochezia, melena, vomiting Genitourinary: ABSENT: dysuria, hematuria Musculoskeletal: ABSENT: joint swelling Integumentary: ABSENT: rash, wounds Neurological: ABSENT: abnormal gait, abnormal speech, confusion, dizziness, focal weakness, syncope Psychiatric: ABSENT: anxiety, depression Endocrine: ABSENT: cold intolerance, heat intolerance, polydipsia, polyuria Hematologic/Lymphatic: ABSENT: easy bleeding, easy bruising Physical Exam General appearance: PRESENT: no acute distress, thin Head exam: PRESENT: atraumatic, normocephalic Eye exam: PRESENT: conjunctiva pink, EOMI, PERRLA. ABSENT: scleral icterus Ear exam: PRESENT: normal external ear exam Mouth exam: PRESENT: moist, tongue midline Neck exam: ABSENT: carotid bruit, JVD, lymphadenopathy, thyromegaly Respiratory exam: PRESENT: clear to auscultation trung. ABSENT: rales, rhonchi, wheezes Cardiovascular exam: PRESENT: RRR. ABSENT: diastolic murmur, rubs, systolic murmur Pulses: PRESENT: normal dorsalis pedis pul Vascular exam: PRESENT: normal capillary refill GI/Abdominal exam: PRESENT: normal bowel sounds, soft, tenderness - Mild epigastric tenderness but no guarding or rebound.. ABSENT: distended, guarding , mass, organolmegaly, rebound Rectal exam: PRESENT: deferred Extremities exam: ABSENT: calf tenderness, clubbing, pedal edema Neurological exam: PRESENT: alert, awake, oriented to person, oriented to place , oriented to time, oriented to situation, CN II-XII grossly intact. ABSENT: motor sensory deficit Psychiatric exam: PRESENT: appropriate affect, normal mood Skin exam: PRESENT: dry, intact, warm. ABSENT: cyanosis, rash Assessment & Plan - Diagnosis (1) Gastroenteritis Is this a current diagnosis for this admission?: YesPlan: Patient has had epigastric pain along with diarrhea suggestive of a gastroenteritis. Patient has had labs drawn at Dr. Douglas's office and we are awaiting those results. The possibility of pancreatitis is considered and if not already done we will add a lipase to her blood work. We'll give IV fluids and IV morphine as needed. If she is still having pain tomorrow we'll consider consult GI if they are available. (2) Abdominal pain Is this a current diagnosis for this admission?: YesPlan: Most likely secondary to gastroenteritis however the possibility of pancreatitis is considered. She could also possibly have worsening metastatic breast cancer. We'll give IV fluids and morphine overnight and see how she does. (3) Breast cancer Is this a current diagnosis for this admission?: YesPlan: Patient has been followed by Dr. Douglas. (4) Hypothyroidism Is this a current diagnosis for this admission?: YesPlan: She has a history of thyroid cancer with thyroidectomy. We'll continue with her current dose of Synthroid. (5) Anxiety Is this a current diagnosis for this admission?: YesPlan: We'll give Ativan when necessary. (6) Diarrhea Is this a current diagnosis for this admission?: YesPlan: She relates a history of C. difficile in the past. She denies having any recent antibiotics. Will check a C. difficile toxin. - Time Time Spent: 50 to 70 Minutes - Plan Summary Plan Summary: Patient is admitted as an observation as I anticipate this will require less than a 2 midnight hospital stay.
[2016-07-15] MEDS: MORPHINE SULFATE 10 MG/ML INJ IV PRN (18:48)
[2016-07-15] MEDS ORDERED: DIAZEPAM 5 MG TABLET PO PRN (21:39)
[2016-07-15] MEDS ORDERED: FENTANYL 50 MCG/HR PATCH.TD72 TD SCH (21:45)
[2016-07-15] MEDS: OXYCODONE HCL IR 5 MG TABLET PO PRN (22:12)
[2016-07-15] MEDS: FAMOTIDINE 20 MG TABLET PO SCH (22:12)
[2016-07-15] MEDS: TRAZODONE HCL 50 MG TABLET PO SCH (22:30)
[2016-07-16] MEDS: VANCOMYCIN HCL INJ 500 MG VIAL PO SCH ×4 (00:02→18:14)
[2016-07-16] MEDS: MORPHINE SULFATE 10 MG/ML INJ IV PRN ×3 (00:02→08:49)
[2016-07-16] MEDS: LORAZEPAM INJ 2 MG/1 ML VIAL IV PRN ×3 (00:31→20:34)
[2016-07-16] MEDS: OXYCODONE HCL IR 5 MG TABLET PO PRN ×4 (04:02→20:33)
[2016-07-16 06:08] LABS: HEMATOCRIT 33.9 % (36.0-47.0); HEMOGLOBIN 11.8 g/dL (12.0-15.5); HGB HCT DIFFERENCE 1.5; MEAN CORPUSCULAR HEMOGLOBIN 31.8 pg (27.0-33.4); MEAN CORPUSCULAR HGB CONC 34.9 g/dL (32.0-36.0); MEAN CORPUSCULAR VOLUME 91 fl (80-97); RED BLOOD COUNT 3.72 10^6/uL (3.72-5.28); RED CELL DISTRIBUTION WIDTH 16.8 % (11.5-14.0)
[2016-07-16 06:25] LABS: ANION GAP 10 (5-19); BLOOD UREA NITROGEN 8 mg/dL (7-20); CALCIUM 8.3 mg/dL (8.4-10.2); CARBON DIOXIDE 21 mmol/L (22-30); CHLORIDE 110 mmol/L (98-107); GLUCOSE 82 mg/dL (75-110); POTASSIUM 4.1 mmol/L (3.6-5.0); SODIUM 140.5 mmol/L (137-145)
[2016-07-16] MEDS: DIAZEPAM 5 MG TABLET PO SCH ×2 (08:48→18:14)
[2016-07-16] MEDS ORDERED: PREGABALIN 50 MG CAPSULE PO ONE (09:00)
[2016-07-16] MEDS ORDERED: ESTAZOLAM 1 MG PO PRN (09:18)
[2016-07-16] MEDS: NORMAL SALINE 1000 ML 1,000 ML IV PRN ×2 (09:41→21:11)
[2016-07-16] MEDS: FAMOTIDINE 20 MG TABLET PO SCH ×2 (09:42→21:11)
[2016-07-16] MEDS: LEVOTHYROXINE SODIUM 0.112 MG TABLET PO SCH (09:43)
[2016-07-16] MEDS: MORPHINE SULFATE SR 30 MG TABLET PO SCH ×2 (09:46→18:18)
[2016-07-16] MEDS ORDERED: LEVOTHYROXINE SODIUM 0.112 MG TABLET PO SCH (10:00)
[2016-07-16] MEDS ORDERED: DRONABINOL 2.5 MG CAPSULE PO SCH (10:00)
[2016-07-16] MEDS ORDERED: DRONABINOL 2.5 MG CAPSULE PO ONE (11:00)
--- NOTE | 2016-07-16 11:34 | PDOC PROGRESS REPORT ---
Subjective Progress Note for:: 07/16/16 Subjective:: Continues to complain of abdominal pain. C. difficile came back positive. She was started on oral vancomycin. Physical Exam Vital Signs: Temp Pulse Resp BP Pulse Ox 97.9 F 71 17 92/61 L 92 07/16/16 10:07 07/16/16 10:07 07/16/16 10:07 07/16/16 10:07 07/16/16 10:07 Intake & Output 07/15/16 07/16/16 07/17/16 06:59 06:59 06:59 Intake Total 1696 Output Total 300 Balance 1396 Weight 47.9 kg General appearance: PRESENT: no acute distress Eye exam: PRESENT: conjunctiva pink. ABSENT: scleral icterus Ear exam: PRESENT: normal external ear exam Mouth exam: PRESENT: moist, tongue midline Neck exam: ABSENT: JVD Respiratory exam: PRESENT: clear to auscultation trung. ABSENT: rales, rhonchi, wheezes Cardiovascular exam: PRESENT: RRR. ABSENT: diastolic murmur, rubs, systolic murmur GI/Abdominal exam: PRESENT: normal bowel sounds, soft, tenderness - Mild epigastric tenderness but no guarding or rebound.. ABSENT: distended, guarding , mass, organolmegaly, rebound Extremities exam: ABSENT: calf tenderness, clubbing, pedal edema Neurological exam: PRESENT: alert, awake, oriented to person, oriented to place , oriented to time, oriented to situation, CN II-XII grossly intact. ABSENT: motor sensory deficit Psychiatric exam: PRESENT: appropriate affect Skin exam: PRESENT: dry, intact, warm. ABSENT: cyanosis, rash Results Laboratory Results: 07/16/16 05:25 07/16/16 05:25 07/16/16 07/16/16 05:25 05:25 WBC 9.0 RBC 3.72 Hgb 11.8 L Hct 33.9 L MCV 91 MCH 31.8 MCHC 34.9 RDW 16.8 H Plt Count 292 Sodium 140.5 Potassium 4.1 Chloride 110 H Carbon Dioxide 21 L Anion Gap 10 BUN 8 Creatinine 0.60 Est GFR ( Amer) > 60 Est GFR (Non-Af Amer) > 60 Glucose 82 Calcium 8.3 L Impressions: Abdomen/Pelvis CT 07/15/16 00:00 IMPRESSION: 1. SMALL SUBCENTIMETER LOW-ATTENUATION CORTICAL LESIONS IN THE KIDNEYS. MOST LIKELY DUE TO CORTICAL CYSTS ALTHOUGH DIFFICULT TO FULLY EVALUATE DUE TO THE SMALL SIZE. 2. CALCIFICATIONS IN THE UNCINATE PROCESS OF THE PANCREAS SUGGESTING CHRONIC PANCREATITIS. 3. NO OTHER SIGNIFICANT OR ACUTE FINDING IN THE ABDOMEN OR PELVIS ON CT SCAN WITH IV CONTRAST. Chest CT 07/15/16 00:00 IMPRESSION: 1. STABLE FOCAL SCLEROSIS IN THE LATERAL LEFT 3RD RIB. 2. HETEROGENOUS MASS IN THE RIGHT BREAST. PROBABLE CENTRAL NECROSIS. THE MASS HAS INCREASED IN SIZE SINCE THE PRIOR STUDY. 3. NO OTHER SIGNIFICANT FINDINGS IN THE CHEST. Assessment & Plan - Diagnosis (1) Gastroenteritis Is this a current diagnosis for this admission?: YesPlan: Patient has had epigastric pain along with diarrhea suggestive of a gastroenteritis. The patient's C. difficile however came back positive. This most likely is the cause of her symptoms. We'll give IV fluids and IV morphine as needed. (2) C. difficile colitis Is this a current diagnosis for this admission?: YesPlan: Patient tested positive for C. difficile. She is being treated with IV fluids, by mouth vancomycin, pain medications. (3) Abdominal pain Is this a current diagnosis for this admission?: YesPlan: Most likely secondary to C. difficile colitis. (4) Breast cancer Is this a current diagnosis for this admission?: YesPlan: Patient has been followed by Dr. Galarza. (5) Hypothyroidism Is this a current diagnosis for this admission?: YesPlan: She has a history of thyroid cancer with thyroidectomy. We'll continue with her current dose of Synthroid. (6) Anxiety Is this a current diagnosis for this admission?: YesPlan: We'll give Ativan when necessary. - Time Time Spent with patient: 25-34 minutes - Inpatient Certification Medical Necessity: Need For IV Fluids
--- NOTE | 2016-07-16 17:08 | PDOC PROGRESS REPORT ---
Subjective Progress Note for:: 07/16/16 Subjective:: Feeling better today. Reviewed the CT scan results with her. Physical Exam Vital Signs: Temp Pulse Resp BP Pulse Ox 97.8 F 62 16 102/56 L 100 07/16/16 15:26 07/16/16 15:26 07/16/16 15:26 07/16/16 15:26 07/16/16 15:26 Intake & Output 07/15/16 07/16/16 07/17/16 06:59 06:59 06:59 Intake Total 1696 720 Output Total 300 Balance 1396 720 Weight 47.9 kg General appearance: PRESENT: no acute distress Head exam: PRESENT: atraumatic, normocephalic, other - alopecia Eye exam: PRESENT: PERRLA Mouth exam: PRESENT: moist Cardiovascular exam: PRESENT: RRR Neurological exam: PRESENT: alert, awake, oriented to person, oriented to time, oriented to situation, CN II-XII grossly intact Results Laboratory Results: 07/16/16 05:25 07/16/16 05:25 07/16/16 07/16/16 05:25 05:25 WBC 9.0 RBC 3.72 Hgb 11.8 L Hct 33.9 L MCV 91 MCH 31.8 MCHC 34.9 RDW 16.8 H Plt Count 292 Sodium 140.5 Potassium 4.1 Chloride 110 H Carbon Dioxide 21 L Anion Gap 10 BUN 8 Creatinine 0.60 Est GFR ( Amer) > 60 Est GFR (Non-Af Amer) > 60 Glucose 82 Calcium 8.3 L Impressions: Abdomen/Pelvis CT 07/15/16 00:00 IMPRESSION: 1. SMALL SUBCENTIMETER LOW-ATTENUATION CORTICAL LESIONS IN THE KIDNEYS. MOST LIKELY DUE TO CORTICAL CYSTS ALTHOUGH DIFFICULT TO FULLY EVALUATE DUE TO THE SMALL SIZE. 2. CALCIFICATIONS IN THE UNCINATE PROCESS OF THE PANCREAS SUGGESTING CHRONIC PANCREATITIS. 3. NO OTHER SIGNIFICANT OR ACUTE FINDING IN THE ABDOMEN OR PELVIS ON CT SCAN WITH IV CONTRAST. Chest CT 07/15/16 00:00 IMPRESSION: 1. STABLE FOCAL SCLEROSIS IN THE LATERAL LEFT 3RD RIB. 2. HETEROGENOUS MASS IN THE RIGHT BREAST. PROBABLE CENTRAL NECROSIS. THE MASS HAS INCREASED IN SIZE SINCE THE PRIOR STUDY. 3. NO OTHER SIGNIFICANT FINDINGS IN THE CHEST. Body Scan Nuclear Medicine 07/16/16 00:00 IMPRESSION: 1. IRREGULAR INCREASED ACTIVITY IN THE PROXIMAL RIGHT FEMUR. THE PATIENT HAS A PRIOR X-RAY OF THE RIGHT HIP DATED 05/04/2016, DONE FOR TRAUMA. CURRENT FINDINGS COULD BE RELATED TO PREVIOUS TRAUMA. RECOMMEND REPEAT X-RAY OF THE RIGHT HIP. 2. FOCAL ACTIVITY ON THE RIGHT SIDE OF THE T12 VERTEBRA MOST LIKELY DUE TO DEGENERATIVE CHANGES. REMAINDER OF THE STUDY IS OTHERWISE UNREMARKABLE. Assessment & Plan - Diagnosis (1) Breast cancer Is this a current diagnosis for this admission?: YesPlan: Will change her therapy once discharged.Review her bone scan with her. (2) C. difficile colitis Is this a current diagnosis for this admission?: YesPlan: Treat per hospitalist Also will follow up on her urine culture. - Time Time Spent with patient: 25-34 minutes
[2016-07-16] MEDS: DRONABINOL 2.5 MG CAPSULE PO SCH (18:14)
[2016-07-16] MEDS: TRAZODONE HCL 50 MG TABLET PO SCH (21:12)
[2016-07-17] MEDS: VANCOMYCIN HCL INJ 500 MG VIAL PO SCH ×5 (00:20→23:26)
[2016-07-17] MEDS: OXYCODONE HCL IR 5 MG TABLET PO PRN ×6 (01:05→23:26)
[2016-07-17] MEDS: LORAZEPAM INJ 2 MG/1 ML VIAL IV PRN ×4 (01:06→17:34)
[2016-07-17] MEDS: NORMAL SALINE 1000 ML 1,000 ML IV PRN ×2 (02:44→13:57)
[2016-07-17 05:49] LABS: ABSOLUTE BASOPHILS # (AUTO) 0.1 10^3/uL (0.0-0.2); ABSOLUTE EOSINOPHILS # (AUTO) 0.1 10^3/uL (0.0-0.6); ABSOLUTE LYMPHOCYTES (AUTO) 1.8 10^3/uL (0.5-4.7); ABSOLUTE NEUT (AUTO) 6.3 10^3/uL (1.7-8.2); BASOPHILS % (AUTO) 1.1 % (0-2); EOSINOPHILS % (AUTO) 1.1 % (0-6); HEMATOCRIT 31.7 % (36.0-47.0); HEMOGLOBIN 10.4 g/dL (12.0-15.5); HGB HCT DIFFERENCE -0.5; LYMPHOCYTES % (AUTO) 19.6 % (13-45); MEAN CORPUSCULAR HEMOGLOBIN 30.7 pg (27.0-33.4); MEAN CORPUSCULAR HGB CONC 32.8 g/dL (32.0-36.0); MEAN CORPUSCULAR VOLUME 94 fl (80-97); MONOCYTES % (AUTO) 10.4 % (3-13); RED BLOOD COUNT 3.39 10^6/uL (3.72-5.28); RED CELL DISTRIBUTION WIDTH 17.3 % (11.5-14.0); SEGMENTED NEUTROPHILS % (AUTO) 67.8 % (42-78); WHITE BLOOD COUNT 9.3 10^3/uL (4.0-10.5)
[2016-07-17 06:01] LABS: ANION GAP 9 (5-19); BLOOD UREA NITROGEN 10 mg/dL (7-20); CALCIUM 8.4 mg/dL (8.4-10.2); CARBON DIOXIDE 24 mmol/L (22-30); CHLORIDE 111 mmol/L (98-107); CREATININE RESULT 0.74 mg/dL (0.52-1.25); GLUCOSE 88 mg/dL (75-110); MAGNESIUM 1.7 mg/dL (1.6-2.3); POTASSIUM 4.4 mmol/L (3.6-5.0); SODIUM 143.7 mmol/L (137-145)
[2016-07-17] MEDS: LEVOTHYROXINE SODIUM 0.112 MG TABLET PO SCH (09:01)
[2016-07-17] MEDS: FAMOTIDINE 20 MG TABLET PO SCH ×2 (09:02→21:05)
[2016-07-17] MEDS: DRONABINOL 2.5 MG CAPSULE PO SCH ×2 (09:02→17:41)
[2016-07-17] MEDS: DIAZEPAM 5 MG TABLET PO SCH ×2 (09:02→17:41)
[2016-07-17] MEDS: MORPHINE SULFATE SR 30 MG TABLET PO SCH ×2 (09:04→17:36)
[2016-07-17] MEDS ORDERED: PREGABALIN 50 MG CAPSULE PO SCH (10:00)
--- NOTE | 2016-07-17 11:21 | PDOC PROGRESS REPORT ---
Subjective Progress Note for:: 07/17/16 Subjective:: Complains of profuse watery diarrhea. Reports her abdominal pain is improved. Physical Exam Vital Signs: Temp Pulse Resp BP Pulse Ox 98.2 F 66 20 122/64 100 07/17/16 08:27 07/17/16 08:27 07/17/16 08:27 07/17/16 08:27 07/17/16 08:27 Intake & Output 07/16/16 07/17/16 07/18/16 06:59 06:59 06:59 Intake Total 1696 3386 Output Total 300 Balance 1396 3386 Weight 47.9 kg 47.5 kg General appearance: PRESENT: no acute distress Eye exam: PRESENT: conjunctiva pink. ABSENT: scleral icterus Mouth exam: PRESENT: moist, tongue midline Neck exam: ABSENT: JVD Respiratory exam: PRESENT: clear to auscultation trung. ABSENT: rales, rhonchi, wheezes Cardiovascular exam: PRESENT: RRR. ABSENT: diastolic murmur, rubs, systolic murmur GI/Abdominal exam: PRESENT: normal bowel sounds, soft, tenderness - Epigastric tenderness but no guarding or rebound.. ABSENT: distended, guarding, mass, organolmegaly, rebound Neurological exam: PRESENT: alert, awake, oriented to person, oriented to place , oriented to time, oriented to situation, CN II-XII grossly intact. ABSENT: motor sensory deficit Psychiatric exam: PRESENT: appropriate affect Skin exam: PRESENT: dry, intact, warm. ABSENT: cyanosis, rash Results Laboratory Results: 07/17/16 05:28 07/17/16 05:28 07/17/16 07/17/16 05:28 05:28 WBC 9.3 RBC 3.39 L Hgb 10.4 L Hct 31.7 L MCV 94 MCH 30.7 MCHC 32.8 RDW 17.3 H Plt Count 225 Seg Neutrophils % 67.8 Lymphocytes % 19.6 Monocytes % 10.4 Eosinophils % 1.1 Basophils % 1.1 Absolute Neutrophils 6.3 Absolute Lymphocytes 1.8 Absolute Monocytes 1.0 Absolute Eosinophils 0.1 Absolute Basophils 0.1 Sodium 143.7 Potassium 4.4 Chloride 111 H Carbon Dioxide 24 Anion Gap 9 BUN 10 Creatinine 0.74 Est GFR ( Amer) > 60 Est GFR (Non-Af Amer) > 60 Glucose 88 Calcium 8.4 Magnesium 1.7 Impressions: Abdomen/Pelvis CT 07/15/16 00:00 IMPRESSION: 1. SMALL SUBCENTIMETER LOW-ATTENUATION CORTICAL LESIONS IN THE KIDNEYS. MOST LIKELY DUE TO CORTICAL CYSTS ALTHOUGH DIFFICULT TO FULLY EVALUATE DUE TO THE SMALL SIZE. 2. CALCIFICATIONS IN THE UNCINATE PROCESS OF THE PANCREAS SUGGESTING CHRONIC PANCREATITIS. 3. NO OTHER SIGNIFICANT OR ACUTE FINDING IN THE ABDOMEN OR PELVIS ON CT SCAN WITH IV CONTRAST. Chest CT 07/15/16 00:00 IMPRESSION: 1. STABLE FOCAL SCLEROSIS IN THE LATERAL LEFT 3RD RIB. 2. HETEROGENOUS MASS IN THE RIGHT BREAST. PROBABLE CENTRAL NECROSIS. THE MASS HAS INCREASED IN SIZE SINCE THE PRIOR STUDY. 3. NO OTHER SIGNIFICANT FINDINGS IN THE CHEST. Body Scan Nuclear Medicine 07/16/16 00:00 IMPRESSION: 1. IRREGULAR INCREASED ACTIVITY IN THE PROXIMAL RIGHT FEMUR. THE PATIENT HAS A PRIOR X-RAY OF THE RIGHT HIP DATED 05/04/2016, DONE FOR TRAUMA. CURRENT FINDINGS COULD BE RELATED TO PREVIOUS TRAUMA. RECOMMEND REPEAT X-RAY OF THE RIGHT HIP. 2. FOCAL ACTIVITY ON THE RIGHT SIDE OF THE T12 VERTEBRA MOST LIKELY DUE TO DEGENERATIVE CHANGES. REMAINDER OF THE STUDY IS OTHERWISE UNREMARKABLE. Assessment & Plan - Diagnosis (1) Gastroenteritis Is this a current diagnosis for this admission?: YesPlan: Patient was initially thought to have gastroenteritis but her C. difficile is positive consistent with a C. difficile colitis. (2) C. difficile colitis Is this a current diagnosis for this admission?: YesPlan: Patient tested positive for C. difficile. She is being treated with IV fluids, by mouth vancomycin, pain medications. The patient continues to have profuse watery diarrhea. Because of this I feel it is necessary that she remain hospitalized on IV fluids for at least an additional 24 hours. (3) Abdominal pain Is this a current diagnosis for this admission?: YesPlan: Most likely secondary to C. difficile colitis. (4) Breast cancer Is this a current diagnosis for this admission?: YesPlan: Patient has been followed by Dr. Galarza. (5) Hypothyroidism Is this a current diagnosis for this admission?: YesPlan: She has a history of thyroid cancer with thyroidectomy. We'll continue with her current dose of Synthroid. (6) Anxiety Is this a current diagnosis for this admission?: YesPlan: We'll give Ativan when necessary. - Time Time Spent with patient: 15-24 minutes - Inpatient Certification Medical Necessity: Need Close Monitoring Due to Risk of Patient Decompensation, Need For IV Fluids
[2016-07-17] MEDS: PREGABALIN 50 MG CAPSULE PO SCH (21:05)
[2016-07-17] MEDS: TRAZODONE HCL 50 MG TABLET PO SCH (21:06)
[2016-07-18] MEDS: NORMAL SALINE 1000 ML 1,000 ML IV PRN ×3 (01:25→08:24)
[2016-07-18] MEDS: OXYCODONE HCL IR 5 MG TABLET PO PRN ×5 (03:22→21:32)
[2016-07-18 04:50] LABS: ABSOLUTE BASOPHILS # (AUTO) 0.1 10^3/uL (0.0-0.2); ABSOLUTE EOSINOPHILS # (AUTO) 0.1 10^3/uL (0.0-0.6); ABSOLUTE LYMPHOCYTES (AUTO) 1.5 10^3/uL (0.5-4.7); ABSOLUTE NEUT (AUTO) 8.7 10^3/uL (1.7-8.2); BASOPHILS % (AUTO) 0.6 % (0-2); EOSINOPHILS % (AUTO) 1.1 % (0-6); HEMATOCRIT 31.7 % (36.0-47.0); HEMOGLOBIN 10.2 g/dL (12.0-15.5); HGB HCT DIFFERENCE -1.1; LYMPHOCYTES % (AUTO) 13.4 % (13-45); MEAN CORPUSCULAR HGB CONC 32.1 g/dL (32.0-36.0); MEAN CORPUSCULAR VOLUME 94 fl (80-97); RED BLOOD COUNT 3.39 10^6/uL (3.72-5.28); RED CELL DISTRIBUTION WIDTH 16.6 % (11.5-14.0); SEGMENTED NEUTROPHILS % (AUTO) 75.9 % (42-78); WHITE BLOOD COUNT 11.5 10^3/uL (4.0-10.5)
[2016-07-18 05:15] LABS: ANION GAP 6 (5-19); BLOOD UREA NITROGEN 13 mg/dL (7-20); CALCIUM 8.8 mg/dL (8.4-10.2); CARBON DIOXIDE 27 mmol/L (22-30); CHLORIDE 108 mmol/L (98-107); CREATININE RESULT 0.68 mg/dL (0.52-1.25); GLUCOSE 67 mg/dL (75-110); POTASSIUM 4.3 mmol/L (3.6-5.0); SODIUM 140.8 mmol/L (137-145)
[2016-07-18] MEDS: VANCOMYCIN HCL INJ 500 MG VIAL PO SCH ×4 (05:57→23:45)
[2016-07-18] MEDS ORDERED: FENTANYL 50 MCG/HR PATCH.TD72 TD SCH (10:00)
[2016-07-18] MEDS: DIAZEPAM 5 MG TABLET PO SCH ×2 (10:14→17:13)
[2016-07-18] MEDS: DRONABINOL 2.5 MG CAPSULE PO SCH ×2 (10:14→17:13)
[2016-07-18] MEDS: LEVOTHYROXINE SODIUM 0.112 MG TABLET PO SCH (10:14)
[2016-07-18] MEDS: FAMOTIDINE 20 MG TABLET PO SCH ×2 (10:14→21:33)
[2016-07-18] MEDS: MORPHINE SULFATE SR 30 MG TABLET PO SCH (10:16)
--- NOTE | 2016-07-18 11:30 | PDOC PROGRESS REPORT ---
Subjective Progress Note for:: 07/18/16 Subjective:: Patient denies nausea, vomiting, fevers, chills. She is still having loose stools. She states that she is urinating too frequently and would like us to discontinue IV fluids. She also would like us to note that she has had an adverse reaction to Flagyl in the past and that she had vomiting upon taking this medication. Nursing reports the patient had unusual reaction to Ativan yesterday and that she became increasingly agitated. Patient states that she has never had this type of reaction before when she has taken Ativan and that she takes Valium on a regular basis with no problems. Physical Exam Vital Signs: Temp Pulse Resp BP Pulse Ox 98.5 F 50 L 14 103/40 L 98 07/18/16 08:16 07/18/16 08:16 07/18/16 08:16 07/18/16 08:16 07/18/16 08:16 Intake & Output 07/17/16 07/18/16 07/19/16 06:59 06:59 06:59 Intake Total 3386 480 Balance 3386 480 Weight 47.5 kg 47.1 kg GENERAL: No acute distress, thin, patchy alopecia secondary to chemotherapy HEENT: Conjunctiva clear, nonicteric, moist mucous membranes, no JVD, midline trachea RESPIRATORY: Clear to auscultation bilaterally, no wheezes, no rhonchi CARDIAC: Regular rate and rhythm, no murmurs/gallops/rubs ABDOMEN: Soft, nondistended, nontender, positive bowel sounds, no rebound, no guarding EXTREMETIES: No edema, cyanosis, clubbing NEUROLOGIC: Alert, oriented to person/place/time, CN's grossly intact, no focal deficits SKIN: No rash, wounds PSYCH: Normal mood, normal affect Results Laboratory Results: 07/18/16 04:19 07/18/16 04:19 07/18/16 07/18/16 04:19 04:19 WBC 11.5 H RBC 3.39 L Hgb 10.2 L Hct 31.7 L MCV 94 MCH 30.0 MCHC 32.1 RDW 16.6 H Plt Count 213 Seg Neutrophils % 75.9 Lymphocytes % 13.4 Monocytes % 9.0 Eosinophils % 1.1 Basophils % 0.6 Absolute Neutrophils 8.7 H Absolute Lymphocytes 1.5 Absolute Monocytes 1.0 Absolute Eosinophils 0.1 Absolute Basophils 0.1 Sodium 140.8 Potassium 4.3 Chloride 108 H Carbon Dioxide 27 Anion Gap 6 BUN 13 Creatinine 0.68 Est GFR ( Amer) > 60 Est GFR (Non-Af Amer) > 60 Glucose 67 L Calcium 8.8 Impressions: Abdomen/Pelvis CT 07/15/16 00:00 IMPRESSION: 1. SMALL SUBCENTIMETER LOW-ATTENUATION CORTICAL LESIONS IN THE KIDNEYS. MOST LIKELY DUE TO CORTICAL CYSTS ALTHOUGH DIFFICULT TO FULLY EVALUATE DUE TO THE SMALL SIZE. 2. CALCIFICATIONS IN THE UNCINATE PROCESS OF THE PANCREAS SUGGESTING CHRONIC PANCREATITIS. 3. NO OTHER SIGNIFICANT OR ACUTE FINDING IN THE ABDOMEN OR PELVIS ON CT SCAN WITH IV CONTRAST. Chest CT 07/15/16 00:00 IMPRESSION: 1. STABLE FOCAL SCLEROSIS IN THE LATERAL LEFT 3RD RIB. 2. HETEROGENOUS MASS IN THE RIGHT BREAST. PROBABLE CENTRAL NECROSIS. THE MASS HAS INCREASED IN SIZE SINCE THE PRIOR STUDY. 3. NO OTHER SIGNIFICANT FINDINGS IN THE CHEST. Body Scan Nuclear Medicine 07/16/16 00:00 IMPRESSION: 1. IRREGULAR INCREASED ACTIVITY IN THE PROXIMAL RIGHT FEMUR. THE PATIENT HAS A PRIOR X-RAY OF THE RIGHT HIP DATED 05/04/2016, DONE FOR TRAUMA. CURRENT FINDINGS COULD BE RELATED TO PREVIOUS TRAUMA. RECOMMEND REPEAT X-RAY OF THE RIGHT HIP. 2. FOCAL ACTIVITY ON THE RIGHT SIDE OF THE T12 VERTEBRA MOST LIKELY DUE TO DEGENERATIVE CHANGES. REMAINDER OF THE STUDY IS OTHERWISE UNREMARKABLE. Assessment & Plan - Diagnosis (1) C. difficile colitis Is this a current diagnosis for this admission?: YesPlan: Continue oral vancomycin. Discontinue IV fluids. Discharge home in the morning. Patient is stable for discharge home today but declined. (2) Breast cancer Is this a current diagnosis for this admission?: YesPlan: Followed by Dr. Galarza of oncology. (3) Hypothyroidism Is this a current diagnosis for this admission?: Yes - Time Time Spent with patient: 25-34 minutes Anticipated discharge: Home Within: within 24 hours
[2016-07-18] MEDS ORDERED: DIAZEPAM 5 MG TABLET PO PRN (11:32)
[2016-07-18] MEDS: PREGABALIN 50 MG CAPSULE PO SCH (21:33)
[2016-07-18] MEDS: TRAZODONE HCL 50 MG TABLET PO SCH (21:35)
[2016-07-19 01:29] VITALS: BP 128/56
[2016-07-19] MEDS: OXYCODONE HCL IR 5 MG TABLET PO PRN ×2 (05:07→09:36)
[2016-07-19] MEDS: VANCOMYCIN HCL INJ 500 MG VIAL PO SCH (05:07)
[2016-07-19] MEDS ORDERED: IBUPROFEN 600 MG TABLET PO PRN (08:55)
[2016-07-19] MEDS: FAMOTIDINE 20 MG TABLET PO SCH (09:37)
[2016-07-19] MEDS: LEVOTHYROXINE SODIUM 0.112 MG TABLET PO SCH (09:37)
[2016-07-19] MEDS: DIAZEPAM 5 MG TABLET PO SCH (09:37)
[2016-07-19] MEDS: DRONABINOL 2.5 MG CAPSULE PO SCH (09:37)
--- NOTE | 2016-07-19 10:46 | PDOC DISCHARGE SUMMARY ---
General - Admit/Disc Date/PCP Admission Date/Primary Care Provider: 07/16/16 11:29 ASUNCION DOUGLAS MD Discharge Date: 07/19/16 - Discharge Diagnosis (1) C. difficile colitis Is this a current diagnosis for this admission?: Yes (2) Breast cancer Is this a current diagnosis for this admission?: Yes (3) Hypothyroidism Is this a current diagnosis for this admission?: Yes (4) Tobacco abuse Is this a current diagnosis for this admission?: Yes - Additional Information Resuscitation Status: Do Not Resuscitate Discharge Diet: Regular Discharge Activity: Activity As Tolerated Home Medications: Diazepam [Valium 5 mg Tablet] 5 mg PO QIDP PRN 07/15/16 Dronabinol [Marinol 2.5 mg Capsule] 2.5 mg PO BID 07/15/16 Estazolam 1 mg PO HSP PRN 07/15/16 Fentanyl [Duragesic 50 Mcg/Hr Transdermal Patch] 1 each TD Q3D 07/15/16 Levothyroxine Sodium [Synthroid 0.112 mg Tablet] 112 mcg PO DAILY 07/15/16 Morphine Sulfate [Morphine Sulfate ER] 30 mg PO BID 07/15/16 Oxycodone HCl [Oxy-Ir 5 mg Tablet] 15 mg PO Q4HP PRN 07/15/16 Pregabalin [Lyrica 50 mg Capsule] 50 mg PO DAILY 07/15/16 Trazodone HCl [Desyrel 50 mg Tablet] 50 mg PO QHS 07/15/16 Fentanyl [Duragesic 50 Mcg/Hr Transdermal Patch] 1 each TD Q3DAYS [id number] Vancomycin HCl 250 mg PO Q6H #40 capsule 07/19/16 History of Present Illness Patient complains of: Abdominal pain and nausea History of Present Illness: MIKE ALEXANDER is a 50 year old female who has widely metastatic breast cancer and has been getting treatment with Dr. Douglas who presents to Dr. Douglas 's office with abdominal pain and nausea. Patient reports that over the last several days she's had epigastric pain is worse when she eats. She's been able to keep some food down but has had difficulty eating because of the pain. She reports that she develops the pain is epigastric sharp pain that does not radiate. She has some nausea but denies any vomiting. She denies any melena or bright red blood per rectum. She does relate having diarrhea over the last was also. The patient denies any fevers or chills. She denies any alcohol use. The patient has had a cholecystectomy previously. Patient has had blood work drawn at Dr. Douglas's office earlier today the results of which are pending at the time of this dictation. The patient denies being around anyone who's been sick. Hospital Course Hospital Course: Was admitted for C. difficile colitis and treated with oral vancomycin. She remained stable during hospitalization. She was given IV fluids during initial course of hospitalization secondary to GI losses. Patient had IV fluids discontinued 24 hours prior to discharge as she was taking good oral intake. She is doing well maintaining oral hydration. She has been noted by nursing staff to be smoking and room. At the time of my visit she is actually off the floor and not in her room. Apparently all of patient's personal effects were missing from room as well. It appears that she left the hospital prior to being discharged formally and therefore did not obtain prescription for necessary antibiotic required to treat C. difficile colitis. Patient's nurse has called and left a voicemail that patient contact number so that we can make sure she gets prescription for antibiotic. I will also call Dr. Douglas and notify her of the situation. Physical Exam Vital Signs: Temp Pulse Resp BP Pulse Ox 98.3 F 60 17 128/56 H 99 07/18/16 23:36 07/18/16 23:36 07/18/16 23:36 07/18/16 23:36 07/18/16 23:36 Intake & Output 07/18/16 07/19/16 07/20/16 06:59 06:59 06:59 Intake Total 480 1090 Balance 480 1090 Weight 47.1 kg 48.2 kg GENERAL: No acute distress, thin, patchy alopecia secondary to chemotherapy HEENT: Conjunctiva clear, nonicteric, moist mucous membranes, no JVD, midline trachea RESPIRATORY: Clear to auscultation bilaterally, no wheezes, no rhonchi CARDIAC: Regular rate and rhythm, no murmurs/gallops/rubs ABDOMEN: Soft, nondistended, nontender, positive bowel sounds, no rebound, no guarding EXTREMETIES: No edema, cyanosis, clubbing NEUROLOGIC: Alert, oriented to person/place/time, CN's grossly intact, no focal deficits SKIN: No rash, wounds PSYCH: Normal mood, normal affect Results Laboratory Results: 07/18/16 04:19 07/18/16 04:19 07/15/16 20:12 C. difficile Tox (PCR) POSITIVE Impressions: Abdomen/Pelvis CT 07/15/16 00:00 IMPRESSION: 1. SMALL SUBCENTIMETER LOW-ATTENUATION CORTICAL LESIONS IN THE KIDNEYS. MOST LIKELY DUE TO CORTICAL CYSTS ALTHOUGH DIFFICULT TO FULLY EVALUATE DUE TO THE SMALL SIZE. 2. CALCIFICATIONS IN THE UNCINATE PROCESS OF THE PANCREAS SUGGESTING CHRONIC PANCREATITIS. 3. NO OTHER SIGNIFICANT OR ACUTE FINDING IN THE ABDOMEN OR PELVIS ON CT SCAN WITH IV CONTRAST. Chest CT 07/15/16 00:00 IMPRESSION: 1. STABLE FOCAL SCLEROSIS IN THE LATERAL LEFT 3RD RIB. 2. HETEROGENOUS MASS IN THE RIGHT BREAST. PROBABLE CENTRAL NECROSIS. THE MASS HAS INCREASED IN SIZE SINCE THE PRIOR STUDY. 3. NO OTHER SIGNIFICANT FINDINGS IN THE CHEST. Body Scan Nuclear Medicine 07/16/16 00:00 IMPRESSION: 1. IRREGULAR INCREASED ACTIVITY IN THE PROXIMAL RIGHT FEMUR. THE PATIENT HAS A PRIOR X-RAY OF THE RIGHT HIP DATED 05/04/2016, DONE FOR TRAUMA. CURRENT FINDINGS COULD BE RELATED TO PREVIOUS TRAUMA. RECOMMEND REPEAT X-RAY OF THE RIGHT HIP. 2. FOCAL ACTIVITY ON THE RIGHT SIDE OF THE T12 VERTEBRA MOST LIKELY DUE TO DEGENERATIVE CHANGES. REMAINDER OF THE STUDY IS OTHERWISE UNREMARKABLE. Qualifiers PATEINT BEING DISCHARGED WITH ANY OF THE FOLLOWING DIAGNOSIS?: No Plan Discharge Plan: Follow-up with Dr. Douglas of oncology. Time Spent: Less than 30 Minutes
== END 2016-07-19 11:49 | disposition home or self-care (01) | DRG 372 ==
LOC: 4S 15:47 → UNDOADMOB 15:47 → 4S 16:40 → OBSVTOIN 07-16 11:29
PROVIDERS: ADMIT Internal Medicine; ATTEND Specialist
DX: A04.7 Enterocolitis due to Clostridium difficile (principal); C79.51 Secondary malignant neoplasm of bone; C77.3 Secondary and unspecified malignant neoplasm of axilla and upper limb lymph nodes; E89.0 Postprocedural hypothyroidism; F17.200 Nicotine dependence, unspecified, uncomplicated; C50.911 Malignant neoplasm of unspecified site of right female breast; G89.3 Neoplasm related pain (acute) (chronic); F32.9 Major depressive disorder, single episode, unspecified; L65.8 Other specified nonscarring hair loss; T45.1X5A Adverse effect of antineoplastic and immunosuppressive drugs, initial encounter; Z66 Do not resuscitate; Z82.61 Family history of arthritis; Z83.3 Family history of diabetes mellitus; Z98.51 Tubal ligation status; Z90.710 Acquired absence of both cervix and uterus; Z90.49 Acquired absence of other specified parts of digestive tract; Z85.850 Personal history of malignant neoplasm of thyroid
CPT/HCPCS: 36415; 71260; 74177; 78306; 80048; 83735; 85025; 85027; 87493; A9270-GY; A9561; G0378; G0379; J2060; J2270; J3370; J3490; J7030; Q9969

== ENCOUNTER 2016-07-23 12:27 | Emergency (ER) | payer MEDICAID ==
[2016-07-23] MEDS ORDERED: FENTANYL 50 MCG/HR PATCH.TD72 TD ONE (13:45)
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
[2016-07-23 14:06] LABS: ABSOLUTE EOSINOPHILS # (AUTO) 0.1 10^3/uL (0.0-0.6); ABSOLUTE LYMPHOCYTES (AUTO) 1.4 10^3/uL (0.5-4.7); ABSOLUTE MONOCYTES (AUTO) 0.6 10^3/uL (0.1-1.4); ABSOLUTE NEUT (AUTO) 7.6 10^3/uL (1.7-8.2); BASOPHILS % (AUTO) 0.2 % (0-2); EOSINOPHILS % (AUTO) 0.8 % (0-6); HEMATOCRIT 32.8 % (36.0-47.0); HEMOGLOBIN 10.8 g/dL (12.0-15.5); HGB HCT DIFFERENCE -0.4; LYMPHOCYTES % (AUTO) 14.8 % (13-45); MEAN CORPUSCULAR HEMOGLOBIN 30.1 pg (27.0-33.4); MEAN CORPUSCULAR VOLUME 91 fl (80-97); MONOCYTES % (AUTO) 6.3 % (3-13); RED BLOOD COUNT 3.59 10^6/uL (3.72-5.28); RED CELL DISTRIBUTION WIDTH 16.5 % (11.5-14.0); SEGMENTED NEUTROPHILS % (AUTO) 77.9 % (42-78); WHITE BLOOD COUNT 9.7 10^3/uL (4.0-10.5)
[2016-07-23 14:10] LABS: ALANINE AMINOTRANSFERASE 22 U/L (9-52); ALBUMIN 3.3 g/dL (3.5-5.0); ALKALINE PHOSPHATASE 65 U/L (38-126); ANION GAP 9 (5-19); ASPARTATE AMINO TRANSFERASE 16 U/L (14-36); BILIRUBIN,DIRECT 0.2 mg/dL (0.0-0.4); BILIRUBIN,TOTAL 0.3 mg/dL (0.2-1.3); BLOOD UREA NITROGEN 10 mg/dL (7-20); CALCIUM 8.8 mg/dL (8.4-10.2); CARBON DIOXIDE 23 mmol/L (22-30); CHLORIDE 110 mmol/L (98-107); CREATININE RESULT 0.49 mg/dL (0.52-1.25); GLUCOSE 94 mg/dL (75-110); POTASSIUM 4.2 mmol/L (3.6-5.0); SODIUM 142.4 mmol/L (137-145); TOTAL PROTEIN 5.8 g/dL (6.3-8.2)
[2016-07-23 14:12] LABS: ALCOHOL < 10 mg/dL (NONE DETECTED)
[2016-07-23] MEDS ORDERED: OXYCODONE HCL SR 10 MG TABLET PO ONE (15:23)
[2016-07-23] MEDS ORDERED: DIAZEPAM 5 MG TABLET PO ONE (15:23)
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
[2016-07-23 17:02] LABS: APPEARANCE,URINE CLOUDY; BILIRUBIN,URINE NEGATIVE (NEGATIVE); GLUCOSE, URINE NEGATIVE (NEGATIVE); KETONES,URINE NEGATIVE (NEGATIVE); LEUKOCYTE ESTERASE,URINE NEGATIVE (NEGATIVE); NITRITE,URINE NEGATIVE (NEGATIVE); PROTEIN,URINE 30 mg/dL (NEGATIVE); URINE SPECIFIC GRAVITY 1.027; UROBILINOGEN,URINE NEGATIVE mg/dL (<2.0)
[2016-07-23 17:11] LABS: URINE BARBITURATES SCREEN NEGATIVE; URINE METHADONE SCREEN NEGATIVE; URINE OPIATES LOW NEGATIVE; URINE PHENCYCLIDINE SCREEN NEGATIVE
[2016-07-23] MEDS ORDERED: VANCOMYCIN HCL INJ 500 MG VIAL PO SCH (17:30)
[2016-07-23] MEDS ORDERED: MORPHINE SULFATE SR 30 MG TABLET PO SCH (18:00)
[2016-07-23] MEDS ORDERED: PREGABALIN 50 MG CAPSULE PO SCH (22:00)
[2016-07-23] MEDS: OXYCODONE HCL IR 5 MG TABLET PO PRN (22:21)
[2016-07-24] MEDS: OXYCODONE HCL IR 5 MG TABLET PO PRN ×3 (04:10→08:18)
[2016-07-24] MEDS: DIAZEPAM 5 MG TABLET PO PRN ×2 (04:10→08:18)
--- NOTE | 2016-07-24 09:12 | PSYCHOLOGICAL NOTE ---
Psych Note - Psych Note Psych Note: The patient is a 50-year-old female, past medical history breast cancer, C. difficile 1 week ago on oral vancomycin, presents with suicidal thoughts for the past day. She called her primary care physician and was told to stop the vancomycin as this may be leading to her suicidal thoughts. Patient states she is a little better but a little not becuase she had no sleep last night. Patient reports difficulty sleeping steeming from both personal medical condition and ED noise level. Patient states her passive sucidal ideation has lessened significantly and feels confident in returning home. Patient is alert and orientated to person place time and circumstance. Mood is euthymic with congruent affect. Patient endorses passive suicidal ideation and denied homicidal ideation. Patient denies auditory and visual hallucinations. Patient is not demonstrating any behavior that is congruent with responding to internal stimuli i.e. good eye contact organized thought process. No delusions are noted. Thought process is organized and linear. Eye contact was well- maintained. Intellectual abilities appear to be within average range. Conversational speech was within normal rate tone and prosody. Attention and concentration are good. Insight, judgment, impulse control are fair. 292.84 (11.24) Medication induced Depressive Disorder Opioid; Moderate- secondary to stage 4 cancer. Impression\plan: Patient is psychiatriccaly clear for discharge. Patient appeared to be suffering from depression secondary to withdrawal from pain medication. Patient is stage IV cancer and has been off her medications since Tuesday. Patient's oncologist provider wrote new prescriptions for the patient and delivered them to [facility] so the patient can fill them upon discharge. Patient has a new appointment with her oncologist at 0830 am 07/26/2016. Dr. Poe was consulted on the care and management of this patient; attending physician is in agreement with recommendations and disposition.
[2016-07-24 09:51] VITALS: BP 126/59
--- NOTE | 2016-07-24 17:41 | EKG REPORT ---
SEVERITY:- NORMAL ECG - SINUS RHYTHM : Confirmed by: Joslyn Jones MD 24-Jul-2016 17:41:00
== END 2016-07-24 09:51 | disposition home or self-care (01) ==
LOC: ER 12:27
DX: R45.851 Suicidal ideations (principal); F19.939 Other psychoactive substance use, unspecified with withdrawal, unspecified; F17.200 Nicotine dependence, unspecified, uncomplicated
CPT/HCPCS: 93005; 99285; 36415; 80307 ×4; 85025; 80053; 81001; 87493 ×2; 93010; J3490 ×8

== ENCOUNTER 2016-08-02 11:13 | Emergency (ER) | payer MEDICAID ==
[2016-08-02] MEDS ORDERED: CYCLOBENZAPRINE HCL 10 MG TABLET PO ONE (11:50)
[2016-08-02] MEDS ORDERED: ONDANSETRON HCL 8 MG TABLET PO ONE (11:50)
[2016-08-02] MEDS ORDERED: KETOROLAC TROMETHAMINE 60 MG/2 ML SDV IM ONE (11:50)
[2016-08-02] MEDS ORDERED: ONDANSETRON 4 MG TAB.RAPDIS PO ONE (12:07)
[2016-08-02] MEDS ORDERED: HYDROMORPHONE HCL INJ/PF 2 MG/ML AMPULE IM ONE (13:20)
[2016-08-02] MEDS ORDERED: MORPHINE SULFATE 10 MG/ML INJ IM ONE (13:28)
--- NOTE | 2016-08-02 17:17 | RADIOLOGY REPORT (SQ) ---
EXAM DESCRIPTION: MRI LUMBAR SPINE COMBO COMPLETED DATE/TIME: 08/02/2016 4:27 pm REASON FOR STUDY: left leg numbness and pain, h/o stage 4 breast ca COMPARISON: None. TECHNIQUE: Sagittal and Axial imaging includes T1, T1 post gadolinium, T2, STIR and gradient echo se quences. Coronal T2/HASTE imaging. CONTRAST TYPE AND DOSE: 10 mL Multihance. RENAL FUNCTION: GFR > 60. LIMITATIONS: None. FINDINGS: VISUALIZED UPPER ABDOMEN: Limited evaluation. No acute or suspicious findings suggested. SEGMENTATION: No transitional anatomy. The lowest well-developed disc space is labeled L5-S1. ALIGNMENT: Anatomic. VERTEBRAE: Intact. No fractures. BONE MARROW: There are marrow replacement in the right pedicle of the T12 vertebral body with enhance ment following contrast. Also a 4 mm rounded focus of enhancement, increased T2 and low T1 signal is noted in the L1 vertebral body centrally. DISC SIGNAL: Small annular tear at the L4-5 level in the left posterior-lateral corner. No significan t loss of height. POSTERIOR ELEMENTS: There are marrow replacement in the right pedicle of the T12 vertebral body with enhancement following contrast. Generally intact. No pars defect evident. HARDWARE: None in the spine. CORD AND CONUS: Normal in size and signal intensity. Conus at the appropriate level. SOFT TISSUES: No aortic aneurysm seen. No bulky retroperitoneal adenopathy or mass. No paraspinal mas s or fluid. L1-L2: No significant spinal stenosis or exit foraminal stenosis. L2-L3: No significant spinal stenosis or exit foraminal stenosis. L3-L4: No significant spinal stenosis or exit foraminal stenosis. L4-L5: Small annular tear at the L4-5 level in the left posterior-lateral corner with 2 mm focal disc bulge with mild contact with the exiting left L4 nerve root. No significant spinal stenosis or exit foraminal stenosis. L5-S1: No significant spinal stenosis or exit foraminal stenosis. LOWER THORACIC: Incompletely imaged. No stenosis seen. SACRUM: Visualized upper sacrum intact. OTHER: No other significant findings. IMPRESSION: There is an enhancing lesion in the right pedicle of the T12 vertebral body. There is a lso a 4 mm rounded focus of enhancement, increased T2 and low T1 signal is noted in the L1 vertebral body centrally. These findings are concerning for metastatic lesions. Small annular tear at the L4-5 level in the left posterior-lateral corner with 2 mm focal disc bulge with mild contact with the exiting left L4 nerve root. No significant spinal stenosis or exit foraminal stenosis. TECHNICAL DOCUMENTATION: JOB ID: [id number] [employer]- All Rights Reserved
--- NOTE | 2016-08-02 17:47 | ER Document Report ---
ED General - General Chief Complaint: Nausea/Vomiting Stated Complaint: NAUSEA Time Seen by Provider: 08/02/16 11:18 Notes: Patient is a 42-year-old female presents emergency department complaining of left leg pain and numbness that started today. She has a history of right leg sciatica but states that her left leg pain is abnormal for her. She was able to ambulate to the ambulance and able to bear weight to get to the ambulance. Motor function intact, strength intact. Denies any UI, SI, saddle anesthesia. 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 Galarza Past medical history significant for stage IV breast cancer, history of C. difficile in July 16, depression, PTSD, thyroid cancer, cervical cancer. TRAVEL OUTSIDE OF THE [place] IN LAST 30 DAYS: No - Related Data Allergies/Adverse Reactions: metronidazole [From Flagyl] Adverse Reaction (Intermediate, Verified 07/18/16 11 :25) VOMITING Past Medical History - Social History Smoking Status: Current Every Day Smoker Chew tobacco use (# tins/day): No Frequency of alcohol use: None Drug Abuse: Marijuana Family History: Reviewed & Not Pertinent Pulmonary Medical History: Reports: Hx Pneumonia Endocrine Medical History: Reports: Hx Hypothyroidism Renal/ Medical History: Reports: Hx Kidney Stones. Denies: Hx Peritoneal Dialysis Malignancy Medical History: Reports: Hx Bone Cancer, Hx Breast Cancer - Metastatic stage IV to the bone, Hx Cervical Cancer Musculoskeltal Medical History: Reports Hx Musculoskeletal Deformity - Breast cancer metastatic to bone Psychiatric Medical History: Reports: Hx Anxiety, Hx Depression Infectious Medical History: Reports: Hx C-Diff Past Surgical History: Reports: Hx Cholecystectomy, Hx Hysterectomy, Hx Thyroid Surgery, Hx Tubal Ligation - Immunizations Hx Diphtheria, Pertussis, Tetanus Vaccination: Yes Review of Systems - Review of Systems Constitutional: No symptoms reported EENT: No symptoms reported Cardiovascular: No symptoms reported Respiratory: No symptoms reported Gastrointestinal: No symptoms reported Musculoskeletal: See HPI Neurological/Psychological: See HPI Physical Exam - Vital signs Vitals: Temp Pulse Resp BP Pulse Ox 99.0 F 83 16 114/49 L 96 08/02/16 11:20 08/02/16 11:20 08/02/16 11:20 08/02/16 11:20 08/02/16 11:20 - General General appearance: Appears well, Alert In distress: None - Respiratory Respiratory status: No respiratory distress Chest status: Nontender Breath sounds: Normal Chest palpation: Normal - Cardiovascular Rhythm: Regular Heart sounds: Normal auscultation Murmur: No Pulses: Normal: Radial, Dorsalis pedis Normal capillary refill: Yes - Rectal Tenderness: No - rectal tone intact wihtout any laxity Hemorrhoids: None - Back Back: Normal, Nontender. No: Deformity/step-off, CVA tenderness, Vertebra tenderness, Scars, Scoliosis, Wounds - Extremities General upper extremity: Normal inspection, Nontender, Normal color, Normal ROM , Normal strength, Normal temperature General lower extremity: Normal inspection, Nontender, Normal color, Normal ROM , Normal strength, Normal temperature. No: Dragan's sign - Neurological Neuro grossly intact: Yes Cognition: Normal Orientation: AAOx4 [place] Coma Scale Eye Opening: Spontaneous [place] Coma Scale Verbal: Oriented [place] Coma Scale Motor: Obeys Commands Salomon Coma Scale Total: 15 Speech: Normal Cranial nerves: Normal Motor strength normal: LUE, RUE, LLE, RLE Additional motor exam normals: Equal tungsten refiner. No: Pronator drift Sensory: Altered light touch - along L4 on the left - Psychological Associated symptoms: Normal affect, Irritable - Skin Skin Temperature: Warm Skin Moisture: Dry Skin Color: Normal Skin Turgor: Elastic Course - Re-evaluation Re-evalutation: 08/02/16 19:24 The patient presents with low back pain without signs of spinal cord compression , cauda equina syndrome, infection, aneurysm, or other serious etiology. The patient is neurologically intact. MRI showed bulging disc at the posterio- lateral aspect of L4-L5 with a disc bulging and impinging on to the left L4 nerve. No evidence of mass, mets. Given the extremely low risk of these diagnoses further testing and evaluation for these possibilities does not appear to be indicated at this time. The patient has been instructed to return if the symptoms worsen or change in any way. Discussed results with oncologist Dr. Asuncion Galarza who recommended steroid taper and NSAIDS. Patient refused steroid due to "allergy" and says she has motrin at home. She is asking for more pain medication but d/w patient the amount of narcotics she has at home and r departments policy on chronic pain management. Patient is stable for discharge home. - Vital Signs Vital signs: Temp Pulse Resp BP Pulse Ox 98.2 F 80 18 146/102 H 98 08/02/16 18:50 08/02/16 18:50 08/02/16 18:50 08/02/16 18:50 08/02/16 18:50 - Diagnostic Test Radiology reviewed: Image reviewed, Reports reviewed Discharge - Discharge Clinical Impression: Herniated disc, Nausea Condition: Good Disposition: HOME, SELF-CARE Instructions: Herniated Disc ([facility]), Nausea or Vomiting, Nonspecific ([facility]), Use of [id number]-Hhw-Fdavssu Ibuprofen ([facility]) Additional Instructions: Please follow up with your oncologist this week Prescriptions: Ondansetron [Zofran Odt 4 mg Tablet] 1 - 2 tab PO Q4H PRN #15 tab.rapdis PRN Reason: For Nausea/Vomiting Referrals: ASUNCION GALARZA MD [ACTIVE STAFF] - Follow up as needed
[2016-08-02] MEDS ORDERED: MORPHINE SULFATE 10 MG/ML INJ IV ONE (17:56)
[2016-08-02 19:05] VITALS: BP 146/102
== END 2016-08-02 18:50 | disposition home or self-care (01) ==
LOC: ER 11:13
DX: M51.26 Other intervertebral disc displacement, lumbar region (principal); R11.2 Nausea with vomiting, unspecified; M79.605 Pain in left leg; F17.200 Nicotine dependence, unspecified, uncomplicated
CPT/HCPCS: 99284; 96372; 96374; 72158; A9577; J3490; J1885; S0119 ×2; J2270